=== PATIENT | female | born 1955 | race Caucasian/White ===

== ENCOUNTER 2024-10-06 16:23 | Inpatient (IN) ==
[2024-10-06] MEDS ORDERED: ONDANSETRON INJ 2 MG/ML 2 ML VIAL IV PRN (17:08)
[2024-10-06] MEDS ORDERED: ALUMINUM/MAGNESIUM SUSP 30 ML UDC PO PRN (17:08)
[2024-10-06] MEDS ORDERED: POLYETHYLENE (MIRALAX) 17 GM PACK PO PRN (17:08)
[2024-10-06 18:18] LABS: Basophils # (auto) 0.04 K/uL (0.00-0.20); Basophils % (auto) 0.5 %; Eosinophils % (auto) 1.1 %; Hematocrit (blood only) 40.6 % (37.0-47.0); Hemoglobin 13.8 g/dl (12.0-16.0); Immature Granulocytes # (auto) 0.04 K/uL (0.01-0.20); Immature Granulocytes % (auto) 0.5 %; Lymphocytes # (auto) 1.38 K/uL (1.20-3.40); Lymphocytes % (auto) 15.6 %; Mean Corpuscular Hemoglobin 28.9 pg (25.0-34.0); Mean Corpuscular Volume 85.1 fL (80.0-100.0); Mean Platelet Volume 9.6 fL (9.4-12.4); Monocytes # (auto) 0.47 K/uL (0.11-0.59); Monocytes % (auto) 5.3 %; Neutrophils # (auto) 6.81 K/uL (1.40-6.50); Platelet Count 380 K/uL (130-400); RDW Coefficient of Variation 12.7 % (11.5-14.5); Red Blood Count 4.77 M/uL (4.20-5.40); White Blood Count 8.84 K/ul (4.8-10.8)
[2024-10-06 18:32] LABS: BUN Creatinine Ratio 20.8 (10-20); C Reactive Protein 2.81 mg/dl (0-0.5); Calcium 9.8 mg/dl (8.6-10.3); Creatinine Clr Calc Pharmacy 59.2 ml/min; Potassium 4.3 mmol/L (3.5-5.1)
[2024-10-06] MEDS ORDERED: CARBOHYDRATES FOR HYPOGLYCEMIA PO PRN (18:36)
[2024-10-06] MEDS ORDERED: DEXTROSE 50% 50 ML SYRINGE IV PRN (18:36)
[2024-10-06] MEDS ORDERED: GLUCOSE 10 TAB/TUBE PO PRN (18:36)
[2024-10-06] MEDS ORDERED: GLUCAGON FOR INJ 1 MG VIAL SQ PRN (18:36)
[2024-10-06] MEDS ORDERED: GLUCOSE 40% GEL 15 GM TUBE PO PRN (18:36)
--- NOTE | 2024-10-06 19:18 | History & Physical Report ---
Date of Service October 06, 2024 Assessment & Plan (1) Gangrene of toe: (2) Diabetes: Plan 69 F with undiagnosed diabetes presented with gangrene to right 5th toe, likely associated diabetic foot infection and high blood glucoses not on treatment. Gangrene described as wet gangrene by Podiatric surgery, will have arterial dopplers, MRI of foot, blood cultures and crp, starting Zosyn iv Diabetes, new diagnosis, will give one dose of NPH and start loose ssi given is insulin niave, will try to get blood glucose down prior to surgery, will have Hgb A1c and have nutrition educator involved post op DVT prevention is SCD and post op will be chemoprophylaxis PT is a full code Admission and Anticipated Discharge Date Admission Date: October 06, 2024 History of Present Illness Primary Care Provider: NO PCP 69 F with relatively good health when approximately 6 weeks ago she did have blister on her right 5th toe she felt was secondary to abrasion, she did complete 10 days of Doxycycline starting 09/04/24, however after some minimal initial improvement her toe became worsened, eventually with what sounds like degloving of the toe, she then noticed that her toe was black and upon revealing this today, 10/06/24, she has a gangrenous toe and was refereed from podiatric clinic with wet gangrene and will likley need amputation, labs on admission show blood glucose of 345. will eval arterial supply, MRI to eval for osteomyelitis and npo for surgical correction Allergies Allergy/AdvReac Type Severity Reaction Status Date / Time No Known Drug Allergies Allergy Unknown Verified 10/06/24 17:18 Past Med/Surg History Problem List (Updated 10/06/24 @ 19:18 by Dmitriy Stewart MD) Diabetes Gangrene of toe Surgical History (Updated 10/06/24 @ 19:13 by Dmitriy Stewart MD) History of tonsillectomy Social History Smoking Status: Never smoker Hx Alcohol Use: Yes Hx Substance Use: No Preferred Language: Citizen Of [place] Marketing Operations Manager Required: No Beliefs That Will Affect Care: None Current Living Situation: Spouse Other Information That Helps Us Care for You: No Feels Safe at Home: Yes Safety Concerns: Feels Safe At This Time Assistive Devices: Denture - Upper and Glasses Review of Systems Review of Systems: Pt in minimal distress no headache, no visual changes no speech or swallowing issues no chest pain, pressure or palpitations no shortness of breath, cough or wheezes no abdominal pain, nausea or vomiting, diarrhea or constipation no dysuria, hematuria or frequency has gangrenous changes to right 5th toe no back pain, CVA tenderness or radicular pain no bruising, bleeding or rashes, pulses are poor in feet but cap refill is good no focal signs of weakness or numbness or altered sensation no complaints of anxiety or depression.. Physical Exam Physical Exam: The patient appeared well nourished and normally developed. Vital signs as documented. Head exam is normocephalic atraumatic Neck is without JVD, thyromegaly, or carotid bruits. Lungs are clear to auscultation, no focal loss of breath sounds Cardiac exam, Rhythm is regular.. No murmurs, rubs or gallops. Abdominal exam reveals normal bowel sounds, soft non tender, no masses Extremities are nonedematous and both pedal pulses are present but lessened r 5th toe is gangrenous tip to pip joint Neurologic exam is alert and oriented, no focal loss of strength or sensation gross sensation of feet intact Skin is otherwise without bruises or rashes Psychologically is without concerns for anxiety or depression.. Results & Data Results & Data Vital Signs (Past 12 Hours) Vital Signs Temp Pulse Resp BP Pulse Ox O2 Del Method 10/06/24 16:45 97.9 F 122 H 16 116/68 97 Room Air Laboratory Results reviewed admission cbc reviewed admission chemistry, glucose is 345 Diagnostic Findings ecg sinus tachy Code Status & VTE Plan VTE Prophylaxis Plan VTE Prophylaxis will be ordered: Yes PG Care Time/CCT Total # of Minutes Spent Total Time Spent with Patient: Total time spent is greater than 50% in coordination of care (as documented) at patient's floor/unit and/or counseling patient: Coding Level of Care Code 54276 INT INP/OBS CARE 3/75MIN Diagnoses Gangrene of toe I96 Diabetes E11.9
[2024-10-06] MEDS: 4.5GM X1 IV STA (20:27)
[2024-10-06] MEDS: NovoLIN-N (NPH) PER UNIT CHARGE SQ ONE (20:30)
[2024-10-06] MEDS: INSULIN ASPART PER UNIT CHARGE SC SCH (21:02)
--- NOTE | 2024-10-06 22:09 | Ultrasound Report ---
EXAM: US arterial duplex LE BI CLINICAL HISTORY: eval blood flow feet recent gangrene. TECHNIQUE: Ultrasound examination of the bilateral lower extremities arteries with ankle brachial indices was performed in real time and duplex. One or more of the following were performed- spectral analysis, resistive index, waveform analysis, and pulsed Doppler. COMPARISON: None. FINDINGS: Vessel Flow Pattern Right Peak Velocity Right (cm/sec) Flow Pattern Left Peak Velocity Left (cm/sec) Common Femoral Artery (FILLING MACHINE OPERATOR) Triphasic 88/11 Triphasic 96/19 Deep Femoral Artery (DPA) triphasic 137/13 Biphasic 64.1 Superficial Femoral Artery (SFA) Biphasic=proximal,mid Monophasic=distal 111-Proximal 232/48-mid 30/17-Distal Biphasic-proximal, mid Monophasic-distal 90/13-proximal 87/11-mid 33/10 Popliteal Artery (POP A) Monophasic-proximal,distal Biphasic-mid 74/45-proximal 186-mid 52/26-Distal Monophasic 77/24-proximal 30/10-mid 39/12-distal Posterior Tibial Artery (EQUIPMENT TESTER), proximal Monophasic 37/24 Monophasic 18/7 Posterior Tibial Artery (EQUIPMENT TESTER), mid Monophasic 26/16 Monophasic 23/9 Posterior Tibial Artery (EQUIPMENT TESTER), distal Monophasic 29/16 Monophasic 13/2 Peroneal artery Monophasic 8/8.3-Proximal 11/6-Mid 8/3-Distal Monophasic 24/10-proximal 10/3-mid 9/0.4-Distal Anterior tibial artery(RAKESH) Monophasic 24/12-Proximal 21/9-Mid 8-Distal Monophasic 45/16-proximal 24/10-mid Dorsalis Pedis Artery (DPA) Monophasic 7.4 Monophasic 16/5 Ankle-brachial indices are 0.39 on the right and 0.71 on the left. Hypoechoic soft tissue is noted in the mid and distal portions of the femoral and popliteal arteries bilaterally with patchy central blood flow seen. High-velocity flow is noted in the right proximal superficial femoral artery with a distal partially thrombosed vessel. Parvus tardus waveform is noted in the calf vessels bilaterally with a monophasic flow pattern. IMPRESSION: 1. Hypoechoic soft tissue was noted in the mid and distal portions of both superficial femoral arteries and the popliteal artery with central patchy blood flow. These findings are concerning for partial thrombosis or moderate atherosclerotic changes. CTA might prove further helpful in evaluation. 2. High-velocity flow in the right proximal superficial femoral artery with partially thrombosed distal vessel. 3. Monophasic parvus tardus waveforms in the distal calf vessels seen bilaterally. 4. Deranged ankle-brachial indices are suggestive of mild to moderate peripheral arterial disease. Electronically signed by Joseph Middleton 10-06-2024 10:08 PM
--- NOTE | 2024-10-06 23:05 | XRay Report ---
Exam(s): XR CXR 1 VIEW EXAM: XR Chest, 1 View CLINICAL HISTORY: Reason for exam: pre op. TECHNIQUE: Frontal view of the chest. COMPARISON: No relevant prior studies available. FINDINGS: Lungs: Unremarkable. No acute infiltration, atelectasis or mass. Pleural space: Unremarkable. No pneumothorax or pleural fluid. Heart: Unremarkable. No cardiomegaly. Mediastinum: Unremarkable. Normal mediastinal contour. Bones/joints: No acute findings. IMPRESSION: No acute findings in the chest. Electronically signed by: Declan Goldberg MD 10/06/24 23:04 PM
--- NOTE | 2024-10-06 23:09 | Magnetic Resonance Report ---
Exam(s): MRI RIGHT FOOT Without Contrast EXAM: MR Right Lower Extremity Without Intravenous Contrast, Foot CLINICAL HISTORY: Reason for exam: right 5th toe gangrene eval further osteo. TECHNIQUE: Multiplanar magnetic resonance images of the right foot without intravenous contrast. COMPARISON: No relevant prior studies available. FINDINGS: There is extensive abnormal bone marrow edema can fluently within the phalanges of the fifth toe consistent with osteomyelitis. No signal abnormalities is seen within the fifth metatarsal. No other significant component of bone marrow edema is evident in the forefoot or midfoot. There is extensive diffuse edema in the forefoot. This is prominent in the fifth digit. There also appears to be extensive loss of the skin and subcutaneous tissues along the dorsal lateral aspect of the fifth toe. IMPRESSION: Evidence of active osteomyelitis in the phalanges of the fifth toe. Electronically signed by: Declan Goldberg MD 10/06/24 23:08 PM
[2024-10-06] MEDS ORDERED: Nursing to Pharmacy Communication SCH (23:45)
[2024-10-07] MEDS: INSULIN ASPART PER UNIT CHARGE SC SCH ×2 (00:31→20:49)
[2024-10-07] MEDS: PIPERACILLIN/TAZOBACTAM 4.5 GM/100 ML BAG IV SCH (02:04)
[2024-10-07] MEDS: ACETAMINOPHEN 325 MG TAB PO PRN (05:50)
[2024-10-07 06:19] LABS: Hemoglobin 12.6 g/dl (12.0-16.0); Mean Corpuscular Hemoglobin 29.1 pg (25.0-34.0); Mean Corpuscular Hgb Conc 34.1 g/dL (32.0-36.0); Mean Corpuscular Volume 85.5 fL (80.0-100.0); Mean Platelet Volume 9.8 fL (9.4-12.4); Platelet Count 353 K/uL (130-400); RDW Coefficient of Variation 12.9 % (11.5-14.5); RDW Standard Deviation 39.8 fL (36.4-46.3); Red Blood Count 4.33 M/uL (4.20-5.40); White Blood Count 8.69 K/ul (4.8-10.8)
[2024-10-07 06:35] LABS: BUN Creatinine Ratio 19.4 (10-20); Calcium 9.3 mg/dl (8.6-10.3); Creatinine Clr Calc Pharmacy 55.1 ml/min; Potassium 3.9 mmol/L (3.5-5.1)
--- NOTE | 2024-10-07 06:53 | Podiatry Consultation ---
Date of Consultation October 07, 2024 Assessment & Plan (1) Peripheral arterial disease: (2) Osteomyelitis of fifth toe of right foot: (3) Gangrene of toe of right foot: (4) Diabetes: Diabetes mellitus type: type 2 Diabetes mellitus termite renewal inspector in sulin use: without prison use Diabetes mellitus complication status: with hyperglycemia Qualified Code(s): E11.65 - Type 2 diabetes mellitus with hyperglycemia Plan Tentative plan for right fifth digit amputation 10/07/2024 add-on case sometime after 4 PM. Continue n.p.o. order. Plan for MAC anesthesia with local block(patient has peripheral neuropathy and little pain at baseline with gangrenous fifth toe). If necessary, okay from podiatry standpoint to continue anticoagulation through the operative phase if no objection from an anesthesia standpoint. Case discussed at length with patient and all questions answered. Will review and sign consent with patient in preoperative holding area. Peripheral vascular disease noted on arterial Doppler study right greater than left. CT angiogram aorta with runoff pending. Will await vascular recommendations prior to amputation. MRI positive for osteomyelitis of the fifth digit right foot. No apparent bone marrow edema of the fourth toe or fifth metatarsal. Discussed with Dr. Stewart. History of Present Illness Reason for Consultation: Gangrene right fifth toe Attending Physician: Dmitriy Stewart MD History of Present Illness Gangrenous fifth toe right foot. Patient reports blood blister to the fifth toe if she noticed 5 to 6 weeks ago. She had been soaking in warm water with Epsom salts and dressing and dry dressing. This past Saturday the top layer of skin came off and she noticed the toe was gangrenous. At that time, she released pus from in between the fourth and fifth toes and started noticing significant odor. Has been developing increasing redness and swelling to the right foot since this past Saturday. Denies nausea, vomiting, fever, chills. Denies history of foot ulceration. Denies history of diabetes or neuropathy. Reports her primary care doctor retired approximately 2 years ago and she has not had blood work to evaluate for diabetes since that time. Unaware of any history of vascular workup the lower extremities. Seen this morning resting comfortably in bedside chair with foot elevated on a chair. Dressing is clean and intact. Patient reports mild increase in pain to the right foot over the past 24 hours. Denies nausea vomiting fever chills. We discussed results of MRI and noninvasive vascular studies. Tentative plan to move forward with fifth digit amputation of the right foot this evening pending vascular clearance. On further discussion patient does report some history of exercise intolerance with calf pain with walking. She reports pain resolved with physical therapy and she denies issues with calf pain since that time. Reports mild pain in the right foot this morning which is increased since yesterday's office visit. Reports improvement of right foot pain with feet in dependent position. Patient's son is a physical therapist in [facility]. Her and son's family are currently out of town traveling home from [place] where he was physical therapy conference/training. Likely returning to the area sometime later today. Patient is waiting till family is closer to town to alert them of her situation. Allergies Allergy/AdvReac Type Severity Reaction Status Date / Time No Known Drug Allergies Allergy Unknown Verified 10/06/24 17:18 Patient History Surgical History (Updated 10/06/24 @ 19:13 by Dmitriy Stewart MD) History of tonsillectomy Social History Smoking Status: Never smoker Hx Alcohol Use: Yes Hx Substance Use: No Preferred Language: [place] Aircraft Cleaning Supervisor Required: No Beliefs That Will Affect Care: None Current Living Situation: Spouse Feels Safe at Home: Yes Assistive Devices: Denture - Upper and Glasses Review of Systems Review of Systems: Denies nausea, vomiting, fever, chills. Cellulitis right foot. Gangrene right fifth toe. Systems are reviewed and otherwise unremarkable unless detailed in history of present illness. Physical Exam Physical Exam: Const: Appears well developed and well nourished. No signs of acute distress present. CV: Extremities: No cyanosis or edema. Capillary refill time is less than 2 seconds all digits of the bilateral foot. Posterior tibial and dorsalis pedis pulses are lightly palpable left nonpalpable right possibly secondary to edema. Skin: Thinning atrophic skin to the bilateral lower extremity with loss of hair growth. Neuro: Decreased protective sensation in the bilateral toes. Psych: Mood/Affect: Mood is normal. Affect is normal. Cognition: Orientation is intact to person, place and time. Focused lower extremity musculoskeletal exam: Leg: No pain with compression of the calf muscle. Ankles: Normal to inspection and palpation. No signs of external injury. Edema right ankle. Right foot: Decreased erythema and edema to the right foot over the past 24 hours. Wet gangrenous portion of the medial toe has significantly improved over the past 24 hours with Betadine soaked dressing transitioning to more of a dry gangrene with persistent scant purulent drainage. Band of erythema extending along the lateral foot from the right fifth toe to the hindfoot and ankle. Lymphangitis does not extend proximal to the ankle. Mummification of the right fifth toe with wet gangrene of the right fifth toe medially with malodor and purulent drainage on the toes. Exposed bone of the distal phalanx of the fifth toe. Fifth toe encroaching on the neighboring fourth toe with exposed joint capsule of the proximal interphalangeal joint necrotic tissue to the wound bed. Results & Data Vital Signs (Past 12 Hours) Vital Signs Temp Pulse Resp BP Pulse Ox O2 Del Method 10/06/24 20:15 36.7 C 82 16 120/62 96 Room Air Diagnostic Findings MRI right foot 10/06/2024: FINDINGS: There is extensive abnormal bone marrow edema can fluently within the phalanges of the fifth toe consistent with osteomyelitis. No signal abnormalities is seen within the fifth metatarsal. No other significant component of bone marrow edema is evident in the forefoot or midfoot. There is extensive diffuse edema in the forefoot. This is prominent in the fifth digit. There also appears to be extensive loss of the skin and subcutaneous tissues along the dorsal lateral aspect of the fifth toe. IMPRESSION: Evidence of active osteomyelitis in the phalanges of the fifth toe. Electronically signed by: Declan Goldberg MD 10/06/24 23:08 PM Lower extremity duplex arterial ultrasound 10/06/2024: Ankle-brachial indices are 0.39 on the right and 0.71 on the left. Hypoechoic soft tissue is noted in the mid and distal portions of the femoral and popliteal arteries bilaterally with patchy central blood flow seen. High-velocity flow is noted in the right proximal superficial femoral artery with a distal partially thrombosed vessel. Parvus tardus waveform is noted in the calf vessels bilaterally with a monophasic flow pattern. IMPRESSION: 1. Hypoechoic soft tissue was noted in the mid and distal portions of both superficial femoral arteries and the popliteal artery with central patchy blood flow. These findings are concerning for partial thrombosis or moderate atherosclerotic changes. CTA might prove further helpful in evaluation. 2. High-velocity flow in the right proximal superficial femoral artery with partially thrombosed distal vessel. 3. Monophasic parvus tardus waveforms in the distal calf vessels seen bilaterally. 4. Deranged ankle-brachial indices are suggestive of mild to moderate peripheral arterial disease. Electronically signed by Joseph Middleton 10-06-2024 10:08 PM PG Care Time/CCT Total # of Minutes Spent Total Time Spent with Patient: Total time spent is greater than 50% in coordination of care (as documented) at patient's floor/unit and/or counseling patient: Coding Level of Care Code 45560 INT INP/OBS CARE 2/55MIN Diagnoses Peripheral arterial disease I73.9 Osteomyelitis of fifth toe of right foot M86.9 Gangrene of toe of right foot I96 Type 2 diabetes mellitus with hyperglycemia, without long-term current use of insulin E11.65 Diabetes mellitus type: type 2 Diabetes mellitus termite renewal inspector insulin use: without prison use Diabetes mellitus complication status: with hyperglycemia
[2024-10-07] MEDS: OPTIRAY 320 125ml IV ONE (08:19)
[2024-10-07] MEDS: LANTUS PER UNIT CHARGE SQ ONE (08:29)
--- NOTE | 2024-10-07 09:19 | CT Scan Report ---
CT ANGIOGRAPHY OF THE ABDOMEN AND PELVIS WITH BILATERAL LOWER EXTREMITY RUNOFF CLINICAL HISTORY: New found bilateral femoral arterial thrombus. COMPARISON STUDY: Bilateral lower extremity arterial Doppler ultrasound October 06, 2024. TECHNIQUE: Helical axial images of the abdomen and pelvis and both lower extremities were obtained du ring arterial phase following intravenous injection of 120 cc Optiray 320 IV. Sagittal and coronal re formats were viewed as well as maximal intensity projections on an independent 3-D workstation. Autom ated exposure control was utilized for the study. A dose lowering technique was utilized adhering to the principles of ALARA. FINDINGS: Visualized portions of the lung bases are unremarkable. The heart is mildly enlarged. There are no hepatic lesions. There is no biliary or pancreatic ductal dilatation. A 2.1 cm densely calcif ied focus within the right upper quadrant, adjacent to the hepatic flexure of the colon is benign. Sp adia, adrenal glands, kidneys and pancreas are unremarkable. There is no hydronephrosis. The caliber and wall thickness of small and large bowel are normal. The appendix is normal. There is no lymphaden opathy. No fluid collections are present. There are no fractures or suspicious osseous lesions within visualized skeletal structures. Note is made of soft tissue gas within the right fifth toe that exte nds to the underlying bone. The caliber of the abdominal aorta is normal. There is moderate atherosclerotic plaque of the abdomin al aorta. The celiac axis, inferior mesenteric artery and bilateral renal arteries are patent without stenosis. There is severe luminal narrowing (90%) of the superior mesenteric artery without occlusio n. There is circumferential noncalcified plaque versus wall thickening of the superior mesenteric art jodie that results in narrowing. There is mild plaque within the right common iliac artery without stenosis. There is moderate stenosi s at the origin of the right internal iliac artery. The right external iliac artery is patent. There is severe short segment narrowing of the proximal right profunda. Severe stenosis of the proximal rig ht superficial femoral artery is noted with occlusion of the majority of the right superficial femora l artery with reconstitution at the level of the distal SFA through collaterals. There is severe sten osis of the right popliteal artery and occlusion versus severe stenosis at the right trifurcation. Th e right calf vessels are severely narrowed versus occluded proximally with distal reconstitution. The mid to distal right calf vessels are somewhat diminutive but patent. There is mild plaque within the left common iliac artery without stenosis. There is mild stenosis at the origin of the left internal iliac artery. The left external iliac artery is patent. Severe short segment stenosis of the proximal left profunda is noted. There is moderate stenosis within the proxim al to mid left superficial femoral artery with severe narrowing of the distal left superficial femora l artery. Associated collaterals are present. There is severe stenosis of the left popliteal artery w ith occlusion at the trifurcation. The proximal left calf vessels are occluded with reconstitution. T he mid to distal left calf vessels are diminutive but patent. IMPRESSION: 1. Extensive vascular disease within the bilateral lower extremities, right more severe than left. T he findings are likely due to to noncalcified atherosclerotic plaque. Intraluminal thrombus could kim ear similar although is considered less likely. No emboli identified. Although less likely, an underl meseret vasculitis would be difficult to completely exclude, particularly given findings within the supe rior mesenteric artery. 2. Occlusion of the majority of the right superficial femoral artery with distal reconstitution throu gh collaterals. Severe stenosis of the right popliteal artery and occlusion versus severe stenosis of the right trifurcation and proximal right calf vessels. Mid to distal right calf vessels patent but somewhat diminutive. 3. Severe stenosis of the distal left superficial femoral artery with associated collateral formation . Severe stenosis of the left popliteal artery with occlusion at the left trifurcation with reconstit ution through collaterals. The mid to distal left calf vessels patent but somewhat diminutive. 4. Severe luminal narrowing of the superior mesenteric artery due to circumferential noncalcified sebas que versus wall thickening. The findings are likely due to noncalcified plaque however a superimposed vasculitis cannot be excluded. 5. Soft tissue gas within the right fifth toe which extends to the underlying bone. Although no bony erosion by CT, the findings are suspicious for osteomyelitis of the right fifth toe. ACT 112: Negative or not required by law. Electronically signed by: Raffi Mcmillan M.D. 10/07/2024 9:17 AM
[2024-10-07 10:30] LABS: ANTI-Xa, UFH(UnfractionatedHep < 0.10 IU/ml (0.3-0.7)
[2024-10-07] MEDS ORDERED: fentaNYL citrate PF 100 MCG/2 ML VIAL IV ONE (11:16)
[2024-10-07 11:18] LABS: Chol HDL Ratio 5.9 (0-5)
[2024-10-07 11:28] LABS: Estimated Average Glucose 329 mg/dl; Hemoglobin A1C 13.1 % (4.5-5.6)
--- NOTE | 2024-10-07 11:31 | Electrocardiogram Report ---
Test Reason : Blood Pressure : */* mmHG Vent. Rate : 106 BPM Atrial Rate : 106 BPM P-R Int : 164 ms QRS Dur : 80 ms QT Int : 346 ms P-R-T Axes : 60 -23 64 degrees QTcB Int : 459 ms Sinus tachycardia Voltage criteria for left ventricular hypertrophy Abnormal ECG No previous ECGs available Confirmed by Jordi Stokes ([id number]) on 10/07/2024 11:31:30 AM Referred By: Dmitriy Stewart Confirmed By: Jordi Stokes
[2024-10-07] MEDS: INSULIN HUMAN REGULAR PER UNIT 10 UNITS in SYRINGE 9.9 ML IV ONE (12:45)
[2024-10-07] MEDS: INSULIN HUMAN NPH SC ONE (12:47)
--- NOTE | 2024-10-07 13:45 | Consultation ---
Date of Consultation October 07, 2024 Assessment & Plan (1) Peripheral arterial disease: This patient has gangrene of the right fifth toe. She is scheduled for amputation today of the right fifth toe. I would recommend arteriography and possible invention this Saturday. If intervention is not possible via the e ndovascular technique we will check the amputation site next week. If it shows no signs of healing then we will plan on doing a bypass. If it shows any signs of healing I would like to treat this conservatively to see if we get it healed without any major vascular reconstructions. I will continue to heparin at this time. Thank you very much for letting us participate in the care of this patient. History of Present Illness Reason for Consultation: Peripheral vascular disease with gangrene of the right fifth toe Attending Physician: Dmitriy Stewart MD History of Present Illness This is a 69-year-old female who was recently found to be diabetic. She claims that she developed a blood blister on her lateral aspect of her right fifth toe approximately 2 weeks prior to this. She thought it was secondary to her new pair of sneakers which she was using for exercise. The skin finally fell off the blister and she noticed that beneath that it was black tissue. She denies any previous history of claudication or tissue loss of the lower extremities. She did have arterial noninvasives and a CAT scan which showed a right superficial femoral artery and possibly popliteal artery occlusion. The left lower extremity also has superficial femoral artery occlusion. Indices are 0.7 on the left and 0.4 on the right. Allergies Allergy/AdvReac Type Severity Reaction Status Date / Time No Known Drug Allergies Allergy Unknown Verified 10/06/24 17:18 Patient History Surgical History History of tonsillectomy Social History Smoking Status: Never smoker Hx Alcohol Use: Yes Hx Substance Use: No Preferred Language: Chinese Film Painter Required: No Beliefs That Will Affect Care: None Current Living Situation: Spouse Feels Safe at Home: Yes Assistive Devices: Denture - Upper and Glasses Review of Systems Review of Systems: All systems reviewed & are unremarkable except as noted in HPI & below Physical Exam Constitutional: WD/WN, vitals as above Respiratory: normal respiratory effort; no respiratory distress Cardiovascular: Rate/Rhythm: regular rate and regular rhythm Vessels: + femoral bruit; + posterior tibial pulses abnormal and + dorsalis pedis pulses ab normal Extremities: + abnormal capillary refill Skin: + eschar (gangrene right 5th toe) Neurologic: CN's II-XI intact bilaterally and moves all extremities Psychiatric: A+Ox3, euthymic affect Results & Data Vital Signs (Past 12 Hours) Vital Signs Temp Pulse Resp BP Pulse Ox O2 Del Method 10/07/24 07:35 36.6 C 108 H 16 122/74 96 Room Air
[2024-10-07 14:03] LABS: A calco-baum cmplx NotReported Not Detected (NotDetected); Bact fragilis Not Reported Not Detected (NotDetected); Blood Culture Id Panel See PCR Comment (NotDetected); C auris Not Reported Not Detected (NotDetected); Calbicans Not Reported Not Detected (NotDetected); Candida glabrata Not Reported Not Detected (NotDetected); Candida krusei Not Reported Not Detected (NotDetected); Cneoformans/gatti Not Reported Not Detected (NotDetected); Cparapsilosis Not Reported Not Detected (NotDetected); E cloacae compx Not Reported Not Detected (NotDetected); Efaecalis Not Reported Not Detected (NotDetected); Efaecium Not Reported Not Detected (NotDetected); Enterobacterales Not Reported Not Detected (NotDetected); Escherichia coli Not Reported Not Detected (NotDetected); H influenzae Not Reported Not Detected (NotDetected); K aerogenes Not Reported Not Detected (NotDetected); Koxytoca Not Reported Not Detected (NotDetected); Kpneumoniae grp Not Reported Not Detected (NotDetected); Lmonocyt Not Reported Not Detected (NotDetected); N meningitidis Not Reported Not Detected (NotDetected); P aeruginosa Not Reported Not Detected (NotDetected); Proteus spp Not Reported Not Detected (NotDetected); Salmonella spp Not Reported Not Detected (NotDetected); Staph lugdunensis Not Reported Not Detected (NotDetected); Staph spp. Not Reported Not Detected (NotDetected); Staphaureus Not Reported Not Detected (NotDetected); Staphepi Not Reported Not Detected (NotDetected); Stenmaltophilia Not Reported Not Detected (NotDetected); Strep agal(GrpB) Not Reported Not Detected (NotDetected); Strep pneum Not Reported Not Detected (NotDetected); Strep pyog (GrpA) Not Reported Not Detected (NotDetected); Strep spp Not Reported DETECTED (NotDetected)
[2024-10-07 14:14] LABS: Streptococcus spp DETECTED (NotDetected)
[2024-10-07] MEDS ORDERED: fentaNYL citrate PF 100 MCG/2 ML VIAL ONE (14:21)
[2024-10-07] MEDS ORDERED: PROPOFOL IV EMULSION 10 MG/ML 20 ML VIAL IV ONE ×5 (14:21→16:50)
[2024-10-07] MEDS ORDERED: LIDOCAINE 2% 2 ML VIAL/AMP(20MG/ML) INFIL ONE (14:21)
[2024-10-07] MEDS ORDERED: ONDANSETRON INJ 2 MG/ML 2 ML VIAL ONE (14:21)
[2024-10-07] MEDS ORDERED: MIDAZOLAM HCL 1 MG/ML 2ML VIAL ONE (14:21)
[2024-10-07] MEDS ORDERED: DEXAMETHASONE SOD INJ 4 MG/ML VIAL ONE (14:21)
[2024-10-07] MEDS ORDERED: ATROPINE SULFATE 0.1 MG/ML 10ML SYR IV PRN (15:34)
[2024-10-07] MEDS ORDERED: ePHEDrine sulfate 50 MG/ML AMP IV PRN (15:34)
[2024-10-07] MEDS ORDERED: fentaNYL citrate PF 100 MCG/2 ML VIAL IV PRN (15:34)
[2024-10-07] MEDS ORDERED: ONDANSETRON INJ 2 MG/ML 2 ML VIAL IV PRN (15:34)
--- NOTE | 2024-10-07 15:34 | Anesthesiology Consultation ---
Date of Service October 07, 2024 Assessment & Plan Chart Review Chart Review: Acceptable Risk for Surgery and Patient NOT seen in Pre Admission Testing Consults Requested none History Surgery Operation Date: 10/07/24 07:00 Proposed Procedures p Right 5th Toe Amputation - Bebeto Wild DPM Operation Date: 10/09/24 10:15 Proposed Procedures p Right Leg Angiogram, Possible Intervention - Frank Lewis MD Height/Weight Height: 5 ft 2 in Weight: 89.6 kg Allergies Allergy/AdvReac Type Severity Reaction Status Date / Time No Known Drug Allergies Allergy Unknown Verified 10/06/24 17:18 Medications Active Medications Generic Name Dose Route Start Last Admin Trade Name Freq PRN Reason Stop Dose Admin Acetaminophen 650 mg 10/06/24 17:08 10/07/24 05:50 Acetaminophen 325 Mg Tab PO 11/05/24 17:07 650 mg Q4H PRN Administration pain/fever Piperacillin Sod/Tazobactam Sod 4.5 gm in 100 mls @ 25 mls/hr 10/07/24 02:00 10/07/24 13:48 Zosyn IV 10/14/24 01:59 Infused Q8H JOSIE Infusion Protocol Insulin Aspart 0 units 10/07/24 00:00 10/07/24 12:44 Insulin Aspart Per Unit Charge SC 11/06/24 00:00 8 units Q6 JOSIE Administration Past Surgical History Surgical History History of tonsillectomy Social History Smoking Status: Never smoker Hx Alcohol Use: Yes alcohol intake frequency: holidays/special occasions only Hx Substance Use: No Physical Exam Vital Signs Last Vital Signs Temp 36.6 C 10/07/24 07:35 Pulse 108 H 10/07/24 07:35 Resp 16 10/07/24 07:35 BP 122/74 10/07/24 07:35 Pulse Ox 96 10/07/24 07:35 O2 Del Method Room Air 10/07/24 07:35 Testing Laboratory Results 10/07/24 05:48 10/07/24 11:45 Hemoglobin A1c 13.1 % (4.5-5.6) H 10/06/24 17:53 10/06/24 17:54 Anaerobic Blood Culture - Preliminary Blood Gram positive cocci in chains 10/06/24 17:53 Anaerobic Blood Culture - Preliminary Blood Gram positive cocci in chains 10/07/24 10/07/24 10/07/24 15:03 13:29 11:25 POC Glucose 219 H 271 H 309 H* 10/07/24 10/07/24 10/07/24 11:24 11:23 07:39 POC Glucose 343 H* 360 H* 286 H 10/07/24 05:40 POC Glucose 255 H Electrocardiogram Date: 10/06/24 Sinus tachycardia Voltage criteria for left ventricular hypertrophy Abnormal ECG No previous ECGs available Confirmed by Jordi Stokes ([id number]) on 10/07/2024 11:31:30 AM
[2024-10-07] MEDS ORDERED: PROMETHAZINE HCL 6.25 MG in SODIUM CHLORIDE 0.9% 50 ML IV PRN (16:04)
--- NOTE | 2024-10-07 16:18 | History & Physical Bridge Note ---
Date of Service October 07, 2024 History & Physical Bridge Note I have examined the patient, reviewed the History & Physical and in the interval since the performance of the History & Physical I have noted the following changes of clinical significance: no changes noted. Vascular surgery consult reviewed and noted. Discussed case with hospitalist team. Reviewed written informed consent with risks and benefits of suggested procedure discussed at length with patient. All questions answered. Informed consent signed by patient and witnessed. Right fifth toe marked
--- NOTE | 2024-10-07 16:33 | Hospitalist Progress Note ---
Date of Service October 07, 2024 Assessment & Plan (1) Gangrene of toe: (2) Diabetes: (3) Gram-positive bacteremia: Plan 69 F with undiagnosed diabetes presented with gangrene to right 5th toe, likely associated diabetic foot infection and high blood glucoses not on treatment. Partial arterial occlusion to lower extremities R>L and gram positive bacteremia with preliminary strep diagnosed Gangrene described as wet gangrene by Podiatric surgery, abnormal arterial Doppler, initiated hypercoagulable workup, CTA of abd aorta and run off shows marked PAD with right leg worse than left leg but also comments on some sma stenosis, strep bacteremia on 2 blood cultures with additional sets ordered for 10/08 and pending echo order also, MRI of foot seems show osteo limited to Right fifth foot phalanges, continuing Zosyn iv Diabetes, new diagnosis, Aic 13 basal bolus insulin PAD vascular surgery considering intervention on 10/09/24 DVT prevention is SCD and post op will be started on heparin gtt without bolus PT is a full code Admission and Anticipated Discharge Date Admission Date: October 06, 2024 Subjective pt had some increased pain after BEBA on Lower extremities, has some improved swelling and redness to foot with iv antibiotics for OR 10/07/24 Physical Exam Physical Exam: awake and alert foot with gangrene foul odor erythema is receding, still some edema, poor but weakly palpable pulses Results & Data Results & Data Vital Signs (Past 12 Hours) Vital Signs Temp Pulse Resp BP Pulse Ox O2 Del Method 10/07/24 15:40 98.2 F 107 H 20 124/69 98 Room Air 10/07/24 07:35 97.9 F 108 H 16 122/74 96 Room Air Laboratory Results reviewed cbc reviewed chemistry review lipids PG Care Time/CCT Total # of Minutes Spent Total Time Spent with Patient: Total time spent is greater than 50% in coordination of care (as documented) at patient's floor/unit and/or counseling patient: Coding Level of Care Code 20607 SUB INP/OBS CARE 3/50MIN Diagnoses Gangrene of toe I96 Type 2 diabetes mellitus with hyperglycemia, without long-term current use of insulin E11.65 Diabetes mellitus type: type 2 Diabetes mellitus fpc insulin use: without fpc use Diabetes mellitus complication status: with hyperglycemia Gram-positive bacteremia R78.81 (2) Diabetes Diabetes mellitus type: type 2 Diabetes mellitus fpc insulin use: without fpc use Diabetes mellitus complication status: with hyperglycemia Qualified Code(s): E11.65 - Type 2 diabetes mellitus with hyperglycemia
[2024-10-07] MEDS: BUPIVACAINE 0.5 % 5 MG/1 ML MPF 30ML VIAL ONE (16:47)
--- NOTE | 2024-10-07 17:00 | Post Operative Brief Note ---
PG Immediate Post Op with CF Date of Surgery October 07, 2024 Pre & Post Diagnosis Operation Date: 10/09/24 10:15 <No data on this case meets the specified criteria> I identified the patient and participated in the time-out.: Yes Procedure Operation Date: 10/09/24 10:15 <No data on this case meets the specified criteria> Surgeon Bebeto Wild, RAEGANM Ultrasonic Solderer none Estimated Blood Loss 2 Findings Consistent with Post-Op Diagnosis Specimens Specimen Description: A. Right 5th toe B. Right 5th toe proximal margin Culture 1. Right 5th toe bone for culture
--- NOTE | 2024-10-07 17:10 | Anesthesiology Progress Note ---
Date of Service October 07, 2024 Anesthesia Post Procedure Vital Signs Vital Signs: Temp Pulse Resp BP Pulse Ox O2 Del Method 10/07/24 15:40 36.8 C 107 H 20 124/69 98 Room Air 10/07/24 07:35 36.6 C 108 H 16 122/74 96 Room Air 10/06/24 20:15 36.7 C 82 16 120/62 96 Room Air Transfer of Care Handoff Completed per policy Notes Mental Status: alert / awake / arousable and participated in evaluation Patient Amnestic to Procedure: Yes Nausea / Vomiting: adequately controlled Pain: adequately controlled Airway Patency, RR, SpO2: stable & adequate BP & HR: stable & adequate Hydration State: stable & adequate Anesthetic Complications: no major complications apparent and Pt Satisfied with anesthetic care
--- NOTE | 2024-10-07 17:14 | Operative Report ---
PG Post Operative Report Pre & Post Diagnosis Operation Date: 10/09/24 10:15 <No data on this case meets the specified criteria> I identified the patient and participated in the time-out.: Yes Procedure Operation Date: 10/09/24 10:15 <No data on this case meets the specified criteria> Surgeon Bebeto Wild, JOSE Conflict Resolution Professional none Estimated Blood Loss 2 Findings Consistent with Post-Op Diagnosis Specimens 1 right fifth toe proximal margin to pathology 2 right fifth toe bone for culture 3 right fifth toe for pathology Drains None Description of Procedure Patient is brought to the patient was brought to the room and remains on hospital bed in supine position. Following IV anesthesia local anesthesia. Right lower extremity is scrubbed prepped and draped to the level of the ankle in usual aseptic fashion. Timeout is held confirming correct patient, side, site, procedure with all necessary parties confirming. Local anesthesia is obtained obtained about the patient's right fifth ray utilizing a total of 10 cc of half percent Marcaine and 1% lidocaine plain. Attention was directed to the right fifth toe which was noted to be gangrenous with ongoing mild malodor. Gangrenous soft tissue extends to approximately the level of the proximal interphalangeal joint of the fifth toe circumferentially. Toe was grasped with a penetrating towel clamp and scant purulent drainage is expressed from the digit. Skin marker was utilized to plan a teardrop shaped incision about the fifth digit with the apex extending slightly dorsal laterally along the glabrous junction. Incision is created with a 15 blade and carried deep to the level of bone of the proximal phalanx of the fifth toe circumferentially. Using sharp and blunt dissection soft tissue was freed from the proximal phalanx to the level of the metatarsophalangeal joint. Wound is flushed with normal sterile saline. Clean 15 blade is utilized to incise the joint capsule at the metatarsal phalangeal joint and disarticulate the toe. Digit is passed to the back table and proximal margin bone pathology is collected with bone cutter including the proximal articular surface of the proximal phalanx. Second bone sample was collected from the proximal phalanx sent for culture and sensitivity. The remainder of the digit is placed in a blue top vessel to be sent for gross pathologic analysis. Wound bed is evaluated and noted to be free of any necrotic appearing soft tissue or bone. Fifth metatarsal head is pristine appearing white cartilage with no signs of necrosis discoloration or damage. Overall minimal bleeding is noted within the surgical wound however there are several small oozing vessels throughout the wound bed within the subcutaneous and cutaneous tissues. No large lumens are identified and electrocautery is not required for hemostasis. Wound is flushed with 500 cc of normal sterile saline. Wound edges are reapproximated over the fifth metatarsal head with little to no tension on the skin edges with a 4-0 nylon suture in simple interrupted fashion taking care not to strangulate the tissue. Foot is cleansed with normal sterile saline dried and dressed with Betadine soaked Adaptic, 4 x 4 fluff gauze, ABD pad and lightly applied Iris dressing and tape. Patient tolerated the procedure and anesthesia well. She was transferred to the PACU with vital signs stable. Following a brief period of. Rate of monitoring in the recovery room. Patient will be transferred back to her hospital bed on the floor for continued medical management, IV antibiotics and plan for angiogram with possible intervention 10/09/2024. Based on intraoperative findings I believe patient would benefit from increased perfusion to the right lower extremity to improve healing potential. Will monitor wound closely until resolution. I attest to the content of the Intraoperative Record and any orders documented therein. Any exceptions are noted below.
[2024-10-07] MEDS ORDERED: Nursing to Pharmacy Communication SCH (18:30)
[2024-10-07] MEDS: LANTUS PER UNIT CHARGE SQ SCH (20:48)
[2024-10-08 08:14] LABS: Hematocrit (blood only) 37.8 % (37.0-47.0); Hemoglobin 12.3 g/dl (12.0-16.0); Mean Corpuscular Hemoglobin 28.5 pg (25.0-34.0); Mean Corpuscular Hgb Conc 32.5 g/dL (32.0-36.0); Mean Corpuscular Volume 87.7 fL (80.0-100.0); Mean Platelet Volume 9.7 fL (9.4-12.4); Platelet Count 324 K/uL (130-400); RDW Coefficient of Variation 12.9 % (11.5-14.5); RDW Standard Deviation 41.1 fL (36.4-46.3); Red Blood Count 4.31 M/uL (4.20-5.40); White Blood Count 12.77 K/ul (4.8-10.8)
[2024-10-08 08:24] LABS: BUN Creatinine Ratio 19.8 (10-20); Calcium 8.8 mg/dl (8.6-10.3); Creatinine Clr Calc Pharmacy 45.1 ml/min
[2024-10-08] MEDS: SODIUM CHLORIDE 0.9% 500 ML IV ONE (08:37)
[2024-10-08 09:40] LABS: Basophils # (auto) 0.02 K/uL (0.00-0.20); Basophils % (auto) 0.2 %; Eosinophils # (auto) 0.03 K/uL (0.00-0.50); Eosinophils % (auto) 0.2 %; Hematocrit (blood only) 34.2 % (37.0-47.0); Hemoglobin 11.2 g/dl (12.0-16.0); Immature Granulocytes # (auto) 0.05 K/uL (0.01-0.20); Immature Granulocytes % (auto) 0.4 %; Lymphocytes # (auto) 0.75 K/uL (1.20-3.40); Mean Corpuscular Hemoglobin 28.8 pg (25.0-34.0); Mean Corpuscular Hgb Conc 32.7 g/dL (32.0-36.0); Mean Corpuscular Volume 87.9 fL (80.0-100.0); Mean Platelet Volume 9.9 fL (9.4-12.4); Monocytes # (auto) 0.64 K/uL (0.11-0.59); Monocytes % (auto) 5.1 %; Neutrophils # (auto) 10.94 K/uL (1.40-6.50); Neutrophils % (auto) 88.1 %; Platelet Count 320 K/uL (130-400); RDW Standard Deviation 41.7 fL (36.4-46.3); Red Blood Count 3.89 M/uL (4.20-5.40); White Blood Count 12.43 K/ul (4.8-10.8)
[2024-10-08] MEDS: Heparin IV Adult Wt-Based Standard w/ INITIAL Bolus Protocol IV STA (10:09)
[2024-10-08] MEDS: HEPARIN SOD (PORCINE) 1000 UNIT/ML IV ONE (10:09)
[2024-10-08] MEDS: HEPARIN 25000 UNIT/500 ML D5W 25,000 UNITS/500 ML BAG IV SCH (10:13)
[2024-10-08 10:16] LABS: Partial Thromboplastin Ratio 1.1; Partial Thromboplastin Time 29 Seconds (21-31); Prothrombin Time 11.2 Seconds (9.0-12.0)
--- NOTE | 2024-10-08 13:40 | Infectious Disease Consult ---
Date of Consultation October 08, 2024 Assessment & Plan (1) Streptococcal bacteremia: (2) Osteomyelitis of fifth toe of right foot: (3) Gangrene of toe of right foot: (4) Peripheral arterial disease: (5) Diabetes: Plan 69yo F with no PMH who presented on 10/06 from podiatry office with wet gangrene of right fifth toe. Recently had doxycycline x 10d starting 09/04. On admission, she was afebrile, tachycardic, 1 BP 89/44 with improvement. Initial labs with WBC 8.84, Cr 0.96. CRP 2.81. CXR negative. LE arterial duplex with PAD. CTA runoff with extensive vascular disease, R>L. MRI right foot with OM of fifth toe. She is diagnosed with new onset diabetes and started on zosyn. BCx with Strep anginosus. S/p OR 10/07 and underwent amputation of right fifth toe at [facility] (per op note, fifth metatarsal head is pristine appearing white cartilage with no signs of necrosis discoloration or damage). ID consulted 10/08. TTE negative for vegetations. No hardware/devices. Bacteremia likely 2/2 infected toe. Will wait for follow up blood cx and OR cultures/path. Im going to keep her on zosyn for today for the wet gangrene and then aim to de-escalate tomorrow. Duration will depend on whether there is residual OM after her amputation, in which case would treat longer, though PO abx could be an option. # OM of right 5th toe and wet gangrene s/p amputation 10/07 # Bacteremia 2/2 Strep anginosus # New diagnosis of diabetes - continue zosyn, will likely de-escalate tomorrow (48hrs postop) pending cultures - f/u blood cx - f/u OR cx and path - final regimen/duration pending above Will continue to follow. If questions or concerns, contact via [employer] or Infectious Disease Call Center . Christina Bills MD [facility], Division of Infectious Diseases Consultation Information Consultation was provided via telemedicine using two-way real-time interactive telecommunication between the patient and the telemedicine provider. For the duration of the visit, the provider was performing the assessment from a different facility than the patient. This includesuse of bluetooth stethoscope forauscultationperformed by the telepresenter that the telemedicine provider can hear if described in the physical exam. Supervisor Assembling contact information: Please call [facility] Call Center . (Phone Number For Physician Use Only) After establishing a telemedicine visit, patient was: Patient was verified with two unique identifiers, Patient/authorized rep acknowledged consent and understanding and Gave permission to continue telehealth session Time Spent with Patient: Subsequent => 55 min History of Present Illness Reason for Consultation: Strep bacteremia from DM foot infection, duration of tx Attending Physician: Dmitriy Stewart MD History of Present Illness 69yo F with no PMH who presented on 10/06 from podiatry clinic with wet gangrene of right fifth toe. She had a blister on her right 5th toe felt to be secondary to abrasion and had gotten a course of doxycycline x 10d starting 09/04. She had minimal improvement and toe eventually became black. Seen by podiatry outpatient and they were c/f wet gangrene and OM and sent patient to the ER. She was afebrile, tachycardic, 1 BP 89/44 with improvement. Initial labs with WBC 8.84, Cr 0.96. CRP 2.81. CXR negative. LE arterial duplex with PAD. CTA runoff with extensive vascular disease, R>L. MRI right foot with OM of fifth toe. She is diagnosed with new onset diabetes and started on zosyn. BCx with Strep anginosus. S/p OR 10/07 and underwent amputation of right fifth toe at [facility] (per op note, fifth metatarsal head is pristine appearing white cartilage with no signs of necrosis discoloration or damage). ID consulted 10/08. On evaluation, patient reports feeling well. She does says that she had some redness on the vicinity of her toe when she had first come in, but no rash on her leg. She did have some swelling in her legs initially. Last dose of doxycycline was 3 weeks ago. No hardware, artificial heart valves/devices. No joint pain, back pain. No abdominal discomfort, vomiting/diarrhea. Allergies Allergy/AdvReac Type Severity Reaction Status Date / Time No Known Drug Allergies Allergy Unknown Verified 10/06/24 17:18 Patient History Surgical History History of tonsillectomy Social History Smoking Status: Never smoker Hx Alcohol Use: Yes Hx Substance Use: No Preferred Language: Swedish Communication Ability: Effective Patient Scheduling Manager Required: No Beliefs That Will Affect Care: None Current Living Situation: Spouse Feels Safe at Home: Yes Assistive Devices: None Review of System 10-point review of systems reviewed and are negative except for as above. Physical Exam Physical Exam: General: Awake, alert, no acute distress HEENT: NC/AT, EOMI, mmm Neck: supple, no LAD Lungs: respirations non-labored Heart: nl peripheral perfusion Abdomen: soft, NT/ND Back: no spinal tenderness Ext: trace LE edema, right leg with postop dressing Skin: no rash Neuro: moving all extremities Results & Data Vital Signs (Past 12 Hours) Vital Signs Temp Pulse Resp BP Pulse Ox O2 Del Method O2 Flow Rate 10/08/24 09:28 108 H 101/61 10/08/24 08:01 37.1 C 114 H 18 93/52 L 94 Nasal Cannula 2 10/08/24 05:42 36.7 C 94 H 18 108/68 95 Room Air 10/08/24 03:21 95 Nasal Cannula 2 10/08/24 03:04 37.0 C 113 H 18 112/70 94 Room Air Laboratory Results Labs reviewed. Diagnostic Findings Imaging reviewed. (5) Diabetes Diabetes mellitus complication status: with hyperglycemia Diabetes mellitus alf insulin use: without termite control servicer use Diabetes mellitus type: type 2 Qualified Code(s): E11.65 - Type 2 diabetes mellitus with hyperglycemia
--- NOTE | 2024-10-08 13:50 | XCELERA ---
[id number] \\[id number]
--- NOTE | 2024-10-08 14:43 | Podiatry Progress Note ---
Date of Service October 08, 2024 Assessment & Plan (1) Gangrene of toe of right foot: (2) Peripheral arterial disease: (3) Osteomyelitis of fifth toe of right foot: (4) Diabetes: (5) Gangrene of toe: (6) Streptococcal bacteremia: Plan Postop day 1 status post right fifth toe amputation for management of gangrene and osteomyelitis. Wound edges remain well-approximated with all sutures intact. At this point there are no signs of soft tissue necrosis along the incision line. Wound edges remain blanchable. -Dressing changed with scant sanguinous drainage to the surgical dressing. Dressing order placed for once daily dressing change cleansing wound with normal sterile saline and applying a bordered foam dressing. -Order placed for postop shoe. Patient okay to weight-bear as tolerated to the right foot in postop shoe. -Proximal margin bone pathology from fifth toe 10/07/2024: Pending. -Bone culture intraoperative fifth toe 10/07/2024: Pending -Scheduled for angiogram with possible intervention 10/09/2024. -Strep bacteremia: Patient evaluated by infectious disease. Plan to continue IV Zosyn for now with possible de-escalation 48 hours postop pending culture results. Admission and Anticipated Discharge Date Admission Date: October 06, 2024 Subjective Postop day 1 status post right fifth toe amputation. Patient resting comfortably in bedside chair with foot elevated on adjacent chair. Reports decreased discomfort to the right foot over the past 24 hours. Surgical dressing remains clean dry and intact. Review of Systems Review of Systems: Patient denies nausea, vomiting, fever, chills, malaise. Reports decreased pain to the right foot. Review of systems otherwise negative unless stated in HPI or below. Physical Exam Physical Exam: Const: Appears well developed and well nourished. No signs of acute distress present. CV: Extremities: No cyanosis or edema. Capillary refill time is less than 2 seconds all digits of the bilateral foot. Posterior tibial and dorsalis pedis pulses are lightly palpable left nonpalpable right possibly secondary to edema. Skin: Thinning atrophic skin to the bilateral lower extremity with loss of hair growth. Neuro: Decreased protective sensation in the bilateral toes. Psych: Mood/Affect: Mood is normal. Affect is normal. Cognition: Orientation is intact to person, place and time. Focused lower extremity musculoskeletal exam: Leg: No pain with compression of the calf muscle. Ankles: Normal to inspection and palpation. No signs of external injury. Edema right ankle. Right foot: Resolving erythema and edema to the right foot. No lymphangitis or streaking. Postop day 1 status post right fifth toe amputation. Wound edges remain well-approximated with all sutures intact. Wound edges remain blanchable without tension on the incision line. No active drainage. Scant sanguinous drainage to surgical dressing. Results & Data Results & Data Vital Signs (Past 12 Hours) Vital Signs Temp Pulse Resp BP Pulse Ox O2 Del Method O2 Flow Rate 10/08/24 14:18 37.6 C H 109 H 18 111/69 93 Room Air 10/08/24 09:28 108 H 101/61 10/08/24 08:01 37.1 C 114 H 18 93/52 L 94 Nasal Cannula 2 10/08/24 05:42 36.7 C 94 H 18 108/68 95 Room Air 10/08/24 03:21 95 Nasal Cannula 2 10/08/24 03:04 37.0 C 113 H 18 112/70 94 Room Air Laboratory Results -Wound culture 10/06/2024 showing group B strep and strep anginosus. Preliminary -Blood culture x 2 10/06/2024 growing Streptococcus anginosus. Preliminary Diagnostic Findings MRI right foot 10/06/2024: FINDINGS: There is extensive abnormal bone marrow edema can fluently within the phalanges of the fifth toe consistent with osteomyelitis. No signal abnormalities is seen within the fifth metatarsal. No other significant component of bone marrow edema is evident in the forefoot or midfoot. There is extensive diffuse edema in the forefoot. This is prominent in the fifth digit. There also appears to be extensive loss of the skin and subcutaneous tissues along the dorsal lateral aspect of the fifth toe. IMPRESSION: Evidence of active osteomyelitis in the phalanges of the fifth toe. Electronically signed by: Declan Goldberg MD 10/06/24 23:08 PM Lower extremity duplex arterial ultrasound 10/06/2024: Ankle-brachial indices are 0.39 on the right and 0.71 on the left. Hypoechoic soft tissue is noted in the mid and distal portions of the femoral and popliteal arteries bilaterally with patchy central blood flow seen. High-velocity flow is noted in the right proximal superficial femoral artery with a distal partially thrombosed vessel. Parvus tardus waveform is noted in the calf vessels bilaterally with a monophasic flow pattern. IMPRESSION: 1. Hypoechoic soft tissue was noted in the mid and distal portions of both superficial femoral arteries and the popliteal artery with central patchy blood flow. These findings are concerning for partial thrombosis or moderate atherosclerotic changes. CTA might prove further helpful in evaluation. 2. High-velocity flow in the right proximal superficial femoral artery with partially thrombosed distal vessel. 3. Monophasic parvus tardus waveforms in the distal calf vessels seen bilaterally. 4. Deranged ankle-brachial indices are suggestive of mild to moderate peripheral arterial disease. Electronically signed by Joseph Middleton 10-06-2024 10:08 PM Coding [place] [address] SUB INP/OBS CARE 2MIN Patient Type Established Diagnoses Gangrene of toe of right foot I96 Peripheral arterial disease I73.9 Osteomyelitis of fifth toe of right foot M86.9 Type 2 diabetes mellitus with hyperglycemia, without long-term current use of insulin E11.65 Diabetes mellitus complication status: with hyperglycemia Diabetes mellitus care home insulin use: without terminal manager use Diabetes mellitus type: type 2 Gangrene of toe I96 Streptococcal bacteremia R78.81; B95.5 (4) Diabetes Diabetes mellitus complication status: with hyperglycemia Diabetes mellitus terminal manager insulin use: without terminal manager use Diabetes mellitus type: type 2 Qualified Code(s): E11.65 - Type 2 diabetes mellitus with hyperglycemia
[2024-10-08 16:33] LABS: ANTI-Xa, UFH(UnfractionatedHep 0.23 IU/ml (0.3-0.7)
[2024-10-09] MEDS ORDERED: Nursing to Pharmacy Communication SCH (04:45)
[2024-10-09 06:27] LABS: BUN Creatinine Ratio 18.4 (10-20); Calcium 8.4 mg/dl (8.6-10.3); Creatinine Clr Calc Pharmacy 41.8 ml/min; Potassium 3.9 mmol/L (3.5-5.1)
[2024-10-09] MEDS: INSULIN ASPART PER UNIT CHARGE SC SCH ×2 (06:30→13:10)
[2024-10-09] MEDS: SODIUM CHLORIDE 0.9% 1,000 ML IV SCH ×3 (07:32→13:09)
--- NOTE | 2024-10-09 07:32 | History & Physical Bridge Note ---
Date of Service October 09, 2024 History & Physical Bridge Note Patient for rle arteriography with possible intervention today. I have discussed the risks options and benefits of the procedure with the patient. The patient understands the risks options and benefits and agrees to the procedure. I have examined the patient, reviewed the History & Physical and in the interval since the performance of the History & Physical I have noted the following changes of clinical significance: no changes noted
--- NOTE | 2024-10-09 08:12 | Pre Anesthesia Assessment ---
Date of Service October 09, 2024 Pre Sedation Assessment Vital Signs Temp Pulse Resp BP Pulse Ox O2 Del Method 10/09/24 07:37 36.9 C 96 H 18 148/65 H 95 Room Air 10/08/24 21:29 36.8 C 108 H 16 106/65 95 Room Air 10/08/24 14:18 37.6 C H 109 H 18 111/69 93 Room Air 10/08/24 09:28 108 H 101/61 Cardiovascular RRR, no murmur, no edema Respiratory normal respiratory effort, lungs clear to auscultation Pre-Sedation Airway Assessment Smoking Status: Never smoker Hx Sleep Apnea: No Short, Thick Neck: No Thyromental Distance: > or= 3.5 Finger Breadths Oral Cavity: + WNL Mallampati Class: II ASA: ASA3 NPO Status Date of Last Intake of Fluids: 10/08/24 Time of Last Intake of Fluids: 21:00 Date of Last Intake of Solid Food: 10/08/24 Time of Last Intake of Solid Foods: 18:00 Procedure Planning Contraindications for Sedation: none Current Medications Reviewed: Yes Notes The planned sedation has been discussed with the patient. Informed Consent was obtained. I have identified the patient, determined the appropriateness of sedation and have assessed the patient immediately prior to the procedure. All medicine(s) and interventions are by my order.
--- NOTE | 2024-10-09 08:45 | Hospitalist Progress Note ---
Date of Service October 09, 2024 Assessment & Plan (1) Gangrene of toe: (2) Diabetes: (3) Gram-positive bacteremia: Plan 69 F with undiagnosed diabetes presented with gangrene to right 5th toe,streptocccal diabetic foot infection with bacteremia and high blood glucoses. Partial arterial occlusion to lower extremities R>L, repeat blood cultures negative after initiation of antibiotics and angiogram with considered angioplasty/stent 10/09 to right leg Gangrene. now with amputation of right 5th toe and primary closure, strep bacteremia on 2 blood cultures with additional sets negative to date, transthoracic echo negative for Endocarditis continuing Zosyn iv however ID feels maybe able to convert to po on dc , suggest amoxil and sensitivities support Diabetes, new diagnosis, Aic 13 basal bolus insulin, nurse informatics educator recommends daily lantus with metformin( start delayed due to angiogram dye) and eventual dexcom but Bid testing for now am and another time, bp slighlty low, mild johan post procedure, but will consider stacey or arb as outpt PRESCRIPTIONS NEEDED AT DISCHARGE: 1.) Lantus Solostar Pen. 2.) Pen Needle 32 gauge x 5/32"- to inject 1x/day. 3.) Metformin. 4.) OneTouch Verio Meter. 5.) OneTouch Verio Test Strips- to check 3x/day. 6.) OneTouch Delica Lancets- to check 3x/day. PAD vascular surgery unable to advance wire thru sfa occlusion and no angioplasty able to be performed on 10/09/24, decision to proceed to fem pop bypass will be based on wound healing DVT prevention is SCD and post op will be started on heparin gtt without bolus PT is a full code Admission and Anticipated Discharge Date Admission Date: October 06, 2024 Subjective pt with unsuccessful angioplasty attempt to right SFA disappointed but realistic Physical Exam Physical Exam: awake and alert R 5th toe amputation site looks good clean and dry foot with less swelling, Results & Data Results & Data Vital Signs (Past 12 Hours) Vital Signs Temp Pulse Pulse Resp BP Pulse Ox O2 Del Method 10/09/24 08:40 94 H 16 176/88 H 99 Oxymask 10/09/24 08:35 94 H 16 159/79 H 99 Oxymask 10/09/24 08:30 94 H 16 144/95 H 98 Oxymask 10/09/24 08:25 90 16 139/69 98 Oxymask 10/09/24 08:20 97 H 16 143/67 H 98 Oxymask 10/09/24 08:15 97 H 16 173/89 H 94 Oxymask 10/09/24 07:37 98.4 F 96 H 18 148/65 H 95 Room Air 10/08/24 21:29 98.2 F 108 H 16 106/65 95 Room Air O2 Flow Rate 10/09/24 08:40 6 10/09/24 08:35 6 10/09/24 08:30 6 10/09/24 08:25 6 10/09/24 08:20 6 10/09/24 08:15 4 10/09/24 07:37 10/08/24 21:29 Laboratory Results review cbc review chemistry PG Care Time/CCT Total # of Minutes Spent Total Time Spent with Patient: Total time spent is greater than 50% in coordination of care (as documented) at patient's floor/unit and/or counseling patient: Coding Level of Care Code 87343 SUB INP/OBS CARE 3/50MIN Diagnoses Gangrene of toe I96 Type 2 diabetes mellitus with hyperglycemia, without long-term current use of insulin E11.65 Diabetes mellitus complication status: with hyperglycemia Diabetes mellitus exterminator insulin use: without custodial use Diabetes mellitus type: type 2 Gram-positive bacteremia R78.81 (2) Diabetes Diabetes mellitus complication status: with hyperglycemia Diabetes mellitus exterminator insulin use: without exterminator use Diabetes mellitus type: type 2 Qualified Code(s): E11.65 - Type 2 diabetes mellitus with hyperglycemia
[2024-10-09] MEDS: MIDAZOLAM HCL 1 MG/ML 2ML VIAL ONE ×2 (08:57→09:26)
[2024-10-09] MEDS: fentaNYL citrate PF 100 MCG/2 ML VIAL ONE (08:57)
[2024-10-09] MEDS ORDERED: LANTUS PER UNIT CHARGE SQ SCH (09:00)
[2024-10-09] MEDS: cefTRIAXone SODIUM 2,000 MG/50 ML BAG IV SCH ×2 (09:00→14:24)
[2024-10-09] MEDS: hydrALAZINE HCL 20 MG/ML VIAL ONE (09:27)
--- NOTE | 2024-10-09 09:28 | Infectious Disease Progress Nt ---
Date of Service October 09, 2024 Assessment & Plan (1) Streptococcal bacteremia: (2) Osteomyelitis of fifth toe of right foot: (3) Gangrene of toe of right foot: (4) Peripheral arterial disease: (5) Diabetes: Plan 69yo F with no PMH who presented on 10/06 from podiatry office with wet gangrene of right fifth toe. Recently had doxycycline x 10d starting 09/04. On admission, she was afebrile, tachycardic, 1 BP 89/44 with improvement. Initial labs with WBC 8.84, Cr 0.96. CRP 2.81. CXR negative. LE arterial duplex with PAD. CTA runoff with extensive vascular disease, R>L. MRI right foot with OM of fifth toe. She is diagnosed with new onset diabetes and started on zosyn. BCx with Strep anginosus. S/p OR 10/07 and underwent amputation of right fifth toe at [facility] (per op note, fifth metatarsal head is pristine appearing white cartilage with no signs of necrosis discoloration or damage). OR cx with S agalactiae and S anginosus. ID consulted 10/08. TTE negative for vegetations. No hardware/devices. Arteriography with possible intervention today. Based on op note, it seems that the cultures were of the proximal phalanx, which was amputated. She has path pending of the proximal margin. Will favor waiting for proximal margin path to determine whether she needs longer treatment. Please note, if she has OM and also has adequate vascular supply after todays procedure, then PO antibiotics can be used. However, if poor vascular supply with OM, then IV would be needed. Awaiting repeat blood cx from 10/08. She doesnt have any other organisms growing so will de-escalate zosyn to CTX today. # OM of right 5th toe and wet gangrene s/p 5th toe amputation 10/07 cx with Strep # Bacteremia 2/2 Strep anginosus # New diagnosis of diabetes # Peripheral arterial disease vascular intervention 10/09 - Mery changed zosyn to CTX 2g IV daily - f/u blood cx and susceptibilities - f/u OR cx and path - if pathology is negative for OM in the proximal margin, then she can complete a 2 week course of antibiotics for Strep bacteremia starting from negative BCx (10/07 cx are of the amputated toe) could use amoxicillin 1g PO tid if sensitive - if pathology is positive for OM, then she will need 6wks of abx for OM (PO if vascular supply is adequate after todays procedure, IV if still inadequate) ID service will continue to follow. Please note that there will be no ID notes over the weekend. If questions or concerns arise, please contact the Infectious Disease Call Center and ask to speak with the covering ID physician. Dr. Joshua will take over on Saturday. Christina Bills MD [facility], Division of Infectious Diseases Admission and Anticipated Discharge Date Admission Date: October 06, 2024 Subjective This patient recommendation is based on a telemedicine consult request which was completed asynchronously through chart review and information provided by the primary physician. The patient was not seen or examined today. The evaluation is consultative in nature and all patient care and treatment decisions can either be accepted or rejected by the patient's primary hospital-based treating physician using their own independent medical judgment for their patient. Time Spent Reviewing Chart: 31+ minutes Afebrile. Results & Data Vital Signs (Past 12 Hours) Vital Signs Temp Pulse Pulse Resp BP Pulse Ox O2 Del Method 10/09/24 09:25 99 H 16 180/74 H 100 Oxymask 10/09/24 09:20 95 H 16 134/85 100 Oxymask 10/09/24 09:15 93 H 16 166/82 H 100 Oxymask 10/09/24 09:10 97 H 16 176/85 H 100 Oxymask 10/09/24 09:05 96 H 16 169/73 H 100 Oxymask 10/09/24 09:00 94 H 16 149/88 H 100 Oxymask 10/09/24 08:55 94 H 16 175/84 H 98 Oxymask 10/09/24 08:50 94 H 16 153/83 H 99 Oxymask 10/09/24 08:45 93 H 16 146/87 H 99 Oxymask 10/09/24 08:40 94 H 16 176/88 H 99 Oxymask 10/09/24 08:35 94 H 16 159/79 H 99 Oxymask 10/09/24 08:30 94 H 16 144/95 H 98 Oxymask 10/09/24 08:25 90 16 139/69 98 Oxymask 10/09/24 08:20 97 H 16 143/67 H 98 Oxymask 10/09/24 08:15 97 H 16 173/89 H 94 Oxymask 10/09/24 07:37 36.9 C 96 H 18 148/65 H 95 Room Air 10/08/24 21:29 36.8 C 108 H 16 106/65 95 Room Air O2 Flow Rate 10/09/24 09:25 5 10/09/24 09:20 5 10/09/24 09:15 6 10/09/24 09:10 6 10/09/24 09:05 6 10/09/24 09:00 6 10/09/24 08:55 6 10/09/24 08:50 6 10/09/24 08:45 6 10/09/24 08:40 6 10/09/24 08:35 6 10/09/24 08:30 6 10/09/24 08:25 6 10/09/24 08:20 6 10/09/24 08:15 4 10/09/24 07:37 10/08/24 21:29 Laboratory Results Labs reviewed. (5) Diabetes Diabetes mellitus type: type 2 Diabetes mellitus mcfp insulin use: without superintendent terminal use Diabetes mellitus complication status: with hyperglycemia Qualified Code(s): E11.65 - Type 2 diabetes mellitus with hyperglycemia
--- NOTE | 2024-10-09 09:39 | Procedure Note ---
Angiogram Post Procedure Fluoroscopy Time (minutes): 14.4 Conscious Sedation Time (minutes): 91 Radiation (mGy): 108 Contrast: 70 Post Operative Report Pre & Post Diagnosis Operation Date: 10/09/24 08:00 Pre-Op Diagnosis: FIFTH RIGHT TOE GANGRENE Post-Op Diagnosis: FIFTH RIGHT TOE GANGRENE I identified the patient and participated in the time-out.: Yes Procedure Operation Date: 10/09/24 08:00 Actual Procedures p Right Leg Angiogram,Percutaneous Transluminal Angioplasty of Right Superficial Femoral Artery,Ultrasound Localization of Left Femoral Artery,Moderate Sedation [id number](Left) - Frank Lewis MD Surgeon Frank Lewis MD Brass Reclaimer none Estimated Blood Loss 40 Findings Consistent with Post-Op Diagnosis Specimens none Anesthesia Type RN Sedation Complications none Disposition Accompanied Patient To Recovery: No Disposition: Recovery Room Indications This is a 69-year-old female who was recently found to have diabetes. She presented with a gangrenous right fifth toe which underwent amputation. Noninvasive suggested right superficial femoral artery as well as infrapopliteal artery occlusions. Arteriography possible invention was recommended. I have discussed the risks options and benefits of the procedure with the patient. The patient understands the risks options and benefits and agrees to the procedure. Description of Procedure The patient was taken the angio suite and placed spine position. After the groins were prepped draped in a sterile manner a timeout was performed and the patient was identified. Using ultrasound the left common femoral artery was identified. Had mild plaque present but was patent. Under ultrasound guidance the left common femoral artery was punctured and 5 Portuguese sheath inserted. Using a rim catheter and a 3 5 Glidewire the right side was cannulated for the left side. The rim catheter was advanced to the proximal common femoral artery. Geography was performed which showed an occluded superficial femoral artery just at its origin all the way down to the proximal popliteal reconstituted for short distance. The tibioperoneal trunk was then occluded as well as the very distal popliteal. The anterior tibial reconstituted beyond the interosseous membrane and the posterior tibial reconstituted just beyond its origin. Both vessels are ran across the ankle to the foot. We then tried to pass a guidewire through the lesion. This was successful with some difficulty. We did pass the quick cross catheter and exchanged the wire to a stiff wire. We then exchanged the sheath to a 7 Portuguese sheath. We inserted a 4 balloon to try and dilate the distal lesion. The balloon would not pass through the proximal lesions. We then exchanged the balloon to a 6 x 100 [place] balloon. This was able to be passed into the superficial femoral artery and the superficial femoral was dilated. Postdilatation arteriography showed still no flow through the superficial femoral artery with recoiling of the artery wall. Due to the length of the superficial femoral artery occlusion as well as the infrapopliteal occlusion of the decided to abandon any further endovascular invention. We we will see how the healing goes of the amputation site or next few days. If heal ing is poor then a bypass will be needed to either the anterior tibial or posterior tibial arteries. The 035 wire was reinserted. The sheath was pulled the puncture closed with a Star closure device. After hemostasis was noted. Pressure dressing was applied to the wound.The patient left the operation room in satisfactory condition and tolerated the procedure well. All needle and sponge counts were correct at the end of the procedure. I attest to the content of the Intraoperative Record and any orders documented therein. Any exceptions are noted below.
--- NOTE | 2024-10-09 09:41 | Post Anesthesia Assessment ---
Date of Service October 09, 2024 Post Sedation Assessment Vital Signs Temp Pulse Pulse Resp BP Pulse Ox O2 Del Method 10/09/24 09:40 103 H 16 128/68 94 Room Air 10/09/24 09:35 104 H 16 145/94 H 100 Oxymask 10/09/24 09:30 99 H 16 170/90 H 100 Oxymask 10/09/24 09:25 99 H 16 180/74 H 100 Oxymask 10/09/24 09:20 95 H 16 134/85 100 Oxymask 10/09/24 09:15 93 H 16 166/82 H 100 Oxymask 10/09/24 09:10 97 H 16 176/85 H 100 Oxymask 10/09/24 09:05 96 H 16 169/73 H 100 Oxymask 10/09/24 09:00 94 H 16 149/88 H 100 Oxymask 10/09/24 08:55 94 H 16 175/84 H 98 Oxymask 10/09/24 08:50 94 H 16 153/83 H 99 Oxymask 10/09/24 08:45 93 H 16 146/87 H 99 Oxymask 10/09/24 08:40 94 H 16 176/88 H 99 Oxymask 10/09/24 08:35 94 H 16 159/79 H 99 Oxymask 10/09/24 08:30 94 H 16 144/95 H 98 Oxymask 10/09/24 08:25 90 16 139/69 98 Oxymask 10/09/24 08:20 97 H 16 143/67 H 98 Oxymask 10/09/24 08:15 97 H 16 173/89 H 94 Oxymask 10/09/24 07:37 36.9 C 96 H 18 148/65 H 95 Room Air 10/08/24 21:29 36.8 C 108 H 16 106/65 95 Room Air 10/08/24 14:18 37.6 C H 109 H 18 111/69 93 Room Air O2 Flow Rate 10/09/24 09:40 10/09/24 09:35 5 10/09/24 09:30 5 10/09/24 09:25 5 10/09/24 09:20 5 10/09/24 09:15 6 10/09/24 09:10 6 10/09/24 09:05 6 10/09/24 09:00 6 10/09/24 08:55 6 10/09/24 08:50 6 10/09/24 08:45 6 10/09/24 08:40 6 10/09/24 08:35 6 10/09/24 08:30 6 10/09/24 08:25 6 10/09/24 08:20 6 10/09/24 08:15 4 10/09/24 07:37 10/08/24 21:29 10/08/24 14:18 Recovery Score Activity: Moves 4 extremities Respiration: Deep Breath/Cough Circulation: +/-20% PreAnes Value Consciousness: Fully Awake Oxygen Saturation: > 92% On Room Air Post Anesthesia Score: 10 Discharge Sedation Level of Care: Fast Track Phase II Post Sedation Plan On clinical assessment, the patient appears to have tolerated the sedation without complications. Patient is recovering as anticipated. Patient will continue to be monitored by nursing and may be discharged when sedation discharge criteria are met per below protocol. Upon Completions of procedure up to 15 minutes continue every 5 minute vital signs and the P.A.R. score; then discharge to a Phase I or Fast Track to Phase II per the following guidelines: * Discharge Patient to appropriate Phase II area if PAR is 8 or greater or return to pre- procedure baseline. The post - procedure orders will be as directed. * If PAR score is less than 8 or not return to pre-procedure baseline then patient will follow Phase I monitoring till PAR is reached for Phase II. The Phase I may be done in procedure room or may call to secure a Phase I area. * If naloxone or flumazenil are used for reversal, hold in Phase I for continued monitoring from when last reversal dose was given for a minimum of 60 minutes or longer pending the nurse and/or physician discretion of patient condition before discharge to Phase II. Please call the Sedation Physician to re-evaluate and complete post-note for discharge to Phase II area. Do NOT discharge from procedure sedation or Phase 1 until post- sedation evaluation note is complete by procedure /sedation MD Sedation Discharge Instructions to be given to the patient at discharge to home.
[2024-10-09] MEDS: LIDOCAINE 1% LOCAL 20 ML VIAL ONE (09:44)
[2024-10-09] MEDS: VISIPAQUE IV PRN (09:45)
[2024-10-09] MEDS: LANTUS PER UNIT CHARGE SQ SCH (10:31)
--- NOTE | 2024-10-09 12:33 | Hospitalist Progress Note ---
Date of Service September Assessment & Plan (1) Gangrene of toe: (2) Diabetes: (3) Gram-positive bacteremia: Plan 69 F with undiagnosed diabetes presented with gangrene to right 5th toe,streptoccocal diabetic foot infection with bacteremia and high blood glucoses. Partial arterial occlusion to lower extremities R>L, repeat blood cultures negative after initiation of antibiotics and angiogram with considered angioplasty/stent 10/09 to right leg, mild johan and acute blood loss anemia post op Gangrene. now with amputation of right 5th toe and primary closure, strep bacteremia on 08/23 blood cultures with additional sets negative to date, transthoracic echo negative for Endocarditis continuing Zosyn iv however ID feels maybe able to convert to po on dc Diabetes, new diagnosis, Aic 13 basal bolus insulin, certified diabetes educator recommends daily lantus with metformin( start delayed due to angiogram dye) and eventual dexcom but Bid testing for now am and another time, bp slighlty low, mild johan post procedure, but will consider stacey or arb as outpt PRESCRIPTIONS NEEDED AT DISCHARGE: 1.) Lantus Solostar Pen. 2.) Pen Needle 32 gauge x 5/32"- to inject 1x/day. 3.) Metformin. 4.) OneTouch Verio Meter. 5.) OneTouch Verio Test Strips- to check 3x/day. 6.) OneTouch Delica Lancets- to check 3x/day. PAD vascular surgery unable to advance wire thru sfa occlusion and no angioplasty able to be performed on 10/09/24, decision to proceed to fem pop bypass will be based on wound healing DVT prevention is SCD and post op will be started on heparin gtt without bolus PT is a full code Admission and Anticipated Discharge Date Admission Date: October 06, 2024 Subjective This is a late entry note for visit of 10/08/24 Pt is doing well, anxious regarding upcoming angioplasty, foot is without significant pain beginning to master diabetic care and carb counting Physical Exam Physical Exam: awake and alert R 5th toe amputation site looks good clean and dry foot with less swelling, Results & Data Results & Data Vital Signs (Past 12 Hours) Vital Signs Temp Pulse Pulse Resp BP BP Pulse Ox 10/09/24 11:53 98.4 F 94 H 17 138/78 97 10/09/24 11:22 98.6 F 95 H 16 142/81 H 97 10/09/24 10:52 98.6 F 96 H 16 142/79 H 97 10/09/24 10:37 98.6 F 97 H 15 135/77 98 10/09/24 10:22 100 H 18 142/79 H 91 10/09/24 10:07 98.4 F 100 H 16 143/79 H 97 10/09/24 09:44 100 H 16 130/77 96 10/09/24 09:40 103 H 16 128/68 94 10/09/24 09:35 104 H 16 145/94 H 100 10/09/24 09:30 99 H 16 170/90 H 100 10/09/24 09:25 99 H 16 180/74 H 100 10/09/24 09:20 95 H 16 134/85 100 10/09/24 09:15 93 H 16 166/82 H 100 10/09/24 09:10 97 H 16 176/85 H 100 10/09/24 09:05 96 H 16 169/73 H 100 10/09/24 09:00 94 H 16 149/88 H 100 10/09/24 08:55 94 H 16 175/84 H 98 10/09/24 08:50 94 H 16 153/83 H 99 10/09/24 08:45 93 H 16 146/87 H 99 10/09/24 08:40 94 H 16 176/88 H 99 10/09/24 08:35 94 H 16 159/79 H 99 10/09/24 08:30 94 H 16 144/95 H 98 10/09/24 08:25 90 16 139/69 98 10/09/24 08:20 97 H 16 143/67 H 98 10/09/24 08:15 97 H 16 173/89 H 94 10/09/24 07:37 98.4 F 96 H 18 148/65 H 95 O2 Del Method O2 Flow Rate 10/09/24 11:53 Nasal Cannula 2 10/09/24 11:22 Nasal Cannula 2.5 10/09/24 10:52 Nasal Cannula 2.5 10/09/24 10:37 Nasal Cannula 2.5 10/09/24 10:22 Room Air 10/09/24 10:07 Room Air 10/09/24 09:44 Room Air 10/09/24 09:40 Room Air 10/09/24 09:35 Oxymask 5 10/09/24 09:30 Oxymask 5 10/09/24 09:25 Oxymask 5 10/09/24 09:20 Oxymask 5 10/09/24 09:15 Oxymask 6 10/09/24 09:10 Oxymask 6 10/09/24 09:05 Oxymask 6 10/09/24 09:00 Oxymask 6 10/09/24 08:55 Oxymask 6 10/09/24 08:50 Oxymask 6 10/09/24 08:45 Oxymask 6 10/09/24 08:40 Oxymask 6 10/09/24 08:35 Oxymask 6 10/09/24 08:30 Oxymask 6 10/09/24 08:25 Oxymask 6 10/09/24 08:20 Oxymask 6 10/09/24 08:15 Oxymask 4 10/09/24 07:37 Room Air Laboratory Results review cbc review chemistry PG Care Time/CCT Total # of Minutes Spent Total Time Spent with Patient: Total time spent is greater than 50% in coordination of care (as documented) at patient's floor/unit and/or counseling patient: Coding Level of Care Code 71331 SUB INP/OBS CARE 350MIN Diagnoses Gangrene of toe I96 Type 2 diabetes mellitus with hyperglycemia, without long-term current use of insulin E11.65 Diabetes mellitus type: type 2 Diabetes mellitus residential insulin use: without residential use Diabetes mellitus complication status: with hyperglycemia Gram-positive bacteremia R78.81 (2) Diabetes Diabetes mellitus type: type 2 Diabetes mellitus intermission coordinator insulin use: without intermission coordinator use Diabetes mellitus complication status: with hyperglycemia Qualified Code(s): E11.65 - Type 2 diabetes mellitus with hyperglycemia
[2024-10-09 14:08] LABS: ANTI-Xa, UFH(UnfractionatedHep < 0.10 IU/ml (0.3-0.7)
--- NOTE | 2024-10-09 15:24 | Podiatry Progress Note ---
Date of Service October 09, 2024 Assessment & Plan (1) Streptococcal bacteremia: (2) Gangrene of toe of right foot: (3) Peripheral arterial disease: (4) Osteomyelitis of fifth toe of right foot: (5) Diabetes: Plan Postop day 2 status post right fifth toe amputation for management of gangrene and osteomyelitis. Wound edges remain well-approximated with all sutures intact. At this point there are no signs of soft tissue necrosis along the incision line. Wound edges remain blanchable. She is status post angiogram earlier this morning. Unable to advance guidewire through SFA occlusion and is no angioplasty was able to be performed. Potential need for lower extremity a rterial bypass patient is struggling to heal wound on the right foot. -Dressing changed without drainage to the dressing. Dressing order placed for once daily dressing change cleansing wound with normal sterile saline and applying a bordered foam dressing. -Okay to continue to weight-bear as tolerated to the right foot in postop shoe. -Proximal margin bone pathology from fifth toe 10/07/2024: Pending. -Bone culture intraoperative fifth toe 10/07/2024: Pending -Strep bacteremia: Patient evaluated by infectious disease. Zosyn transition to CTX 2 g IV daily today. Patient will continue 2-week course of IV antibiotics for strep bacteremia. Clinically patient has a significant reduction in erythema and edema to the right foot over the past 48 hours. Wound edges appear to be healing without incident at this time with blanchable skin edges. Will continue to monitor wound healing and signs of local soft tissue infection. Regardless of the outcome of pathology results for proximal margin I think it would be reasonable to discontinue IV antibiotics after 2 weeks from a foot standpoint as long as the wound is well-healed without signs of persistent infection. Patient okay for discharge from podiatry standpoint. She is encouraged to continue postop shoe at all times while weightbearing until follow-up. Minimize weightbearing when possible. Dressing every other day with dry sterile dressing to the right foot amputation site. Follow-up in the podiatry clinic within 1 week of discharge. Admission and Anticipated Discharge Date Admission Date: October 06, 2024 Subjective Patient seen resting comfortably in hospital bed status post endovascular inter vention. Reports loss of appetite following procedure. Otherwise patient reports feeling well today. Denies nausea, vomiting, fever, chills. Denies pain in the right foot. Reports increased range of motion and sensation to the right foot. Review of Systems Review of Systems: Loss of appetite. Denies nausea vomiting fever chills. Review of systems otherwise negative unless detailed in HPI. Physical Exam Physical Exam: Const: Appears well developed and well nourished. No signs of acute distress present. CV: Extremities: No cyanosis or edema. Capillary refill time is less than 2 seconds all digits of the bilateral foot. Posterior tibial and dorsalis pedis pulses are lightly palpable left nonpalpable right possibly secondary to edema. Skin: Thinning atrophic skin to the bilateral lower extremity with loss of hair growth. Neuro: Decreased protective sensation in the bilateral toes. Psych: Mood/Affect: Mood is normal. Affect is normal. Cognition: Orientation is intact to person, place and time. Focused lower extremity musculoskeletal exam: Leg: No pain with compression of the calf muscle. Ankles: Normal to inspection and palpation. No signs of external injury. Edema right ankle. Right foot: Resolving erythema and edema to the right foot. No lymphangitis or streaking. Postop day 2 status post right fifth toe amputation. Wound edges remain well-approximated with all sutures intact. Wound edges remain blanchable without tension on the incision line. No active drainage. Scant sanguinous drainage to surgical dressing. Results & Data Results & Data Vital Signs (Past 12 Hours) Vital Signs Temp Pulse Pulse Resp BP BP Pulse Ox 10/09/24 13:49 37.4 C 97 H 18 117/68 95 10/09/24 11:53 36.9 C 94 H 17 138/78 97 10/09/24 11:22 37 C 95 H 16 142/81 H 97 10/09/24 10:52 37 C 96 H 16 142/79 H 97 10/09/24 10:37 37.0 C 97 H 15 135/77 98 10/09/24 10:22 100 H 18 142/79 H 91 10/09/24 10:07 36.9 C 100 H 16 143/79 H 97 10/09/24 09:44 100 H 16 130/77 96 10/09/24 09:40 103 H 16 128/68 94 10/09/24 09:35 104 H 16 145/94 H 100 10/09/24 09:30 99 H 16 170/90 H 100 10/09/24 09:25 99 H 16 180/74 H 100 10/09/24 09:20 95 H 16 134/85 100 10/09/24 09:15 93 H 16 166/82 H 100 10/09/24 09:10 97 H 16 176/85 H 100 10/09/24 09:05 96 H 16 169/73 H 100 10/09/24 09:00 94 H 16 149/88 H 100 10/09/24 08:55 94 H 16 175/84 H 98 10/09/24 08:50 94 H 16 153/83 H 99 10/09/24 08:45 93 H 16 146/87 H 99 10/09/24 08:40 94 H 16 176/88 H 99 10/09/24 08:35 94 H 16 159/79 H 99 10/09/24 08:30 94 H 16 144/95 H 98 10/09/24 08:25 90 16 139/69 98 10/09/24 08:20 97 H 16 143/67 H 98 10/09/24 08:15 97 H 16 173/89 H 94 10/09/24 07:37 36.9 C 96 H 18 148/65 H 95 O2 Del Method O2 Flow Rate 10/09/24 13:49 Nasal Cannula 2 10/09/24 11:53 Nasal Cannula 2 10/09/24 11:22 Nasal Cannula 2.5 10/09/24 10:52 Nasal Cannula 2.5 10/09/24 10:37 Nasal Cannula 2.5 10/09/24 10:22 Room Air 10/09/24 10:07 Room Air 10/09/24 09:44 Room Air 10/09/24 09:40 Room Air 10/09/24 09:35 Oxymask 5 10/09/24 09:30 Oxymask 5 10/09/24 09:25 Oxymask 5 10/09/24 09:20 Oxymask 5 10/09/24 09:15 Oxymask 6 10/09/24 09:10 Oxymask 6 10/09/24 09:05 Oxymask 6 10/09/24 09:00 Oxymask 6 10/09/24 08:55 Oxymask 6 10/09/24 08:50 Oxymask 6 10/09/24 08:45 Oxymask 6 10/09/24 08:40 Oxymask 6 10/09/24 08:35 Oxymask 6 10/09/24 08:30 Oxymask 6 10/09/24 08:25 Oxymask 6 10/09/24 08:20 Oxymask 6 10/09/24 08:15 Oxymask 4 10/09/24 07:37 Room Air Coding Level of Care Code 75098 SUB INP/OBS CARE 2MIN Diagnoses Streptococcal bacteremia R78.81; B95.5 Gangrene of toe of right foot I96 Peripheral arterial disease I73.9 Osteomyelitis of fifth toe of right foot M86.9 Type 2 diabetes mellitus with hyperglycemia, without long-term current use of insulin E11.65 Diabetes mellitus type: type 2 Diabetes mellitus long-term insulin use: without terminal operations manager use Diabetes mellitus complication status: with hyperglycemia (5) Diabetes Diabetes mellitus type: type 2 Diabetes mellitus terminal operations manager insulin use: without long-term use Diabetes mellitus complication status: with hyperglycemia Qualified Code(s): E11.65 - Type 2 diabetes mellitus with hyperglycemia
[2024-10-09 19:12] LABS: ANTI-Xa, UFH(UnfractionatedHep 0.12 IU/ml (0.3-0.7)
[2024-10-09] MEDS: HEPARIN SOD (PORCINE) 1000 UNIT/ML IV ONE (20:00)
[2024-10-09] MEDS: HEPARIN SOD (PORCINE) 1000 UNIT/ML ONE (21:48)
[2024-10-10 01:40] LABS: ANTI-Xa, UFH(UnfractionatedHep 0.24 IU/ml (0.3-0.7)
--- NOTE | 2024-10-10 07:38 | Hospitalist Progress Note ---
Date of Service October 10, 2024 Assessment & Plan (1) Gangrene of toe: (2) Diabetes: (3) Gram-positive bacteremia: Plan 69 F with undiagnosed diabetes presented with gangrene to right 5th toe, diabetic foot infection with bacteremia(streptococcal) and high blood glucoses. Partial arterial occlusion to lower extremities R>L, repeat blood cultures negative after initiation of antibiotics and angiogram with considered angioplasty/stent 10/09 to right leg was unsuccessful, decision to revascularize based on wound healing, ID feels home on po antibiotics 2 week minimum Gangrene. now with amputation of right 5th toe and primary closure, strep bacteremia on 2/2 blood cultures with additional sets negative to date, transthoracic echo negative for Endocarditis continuing ceftriaxone iv however ID feels able to convert to po on dc , podiatry feels good surgical margins, suggest amoxil and sensitivities support Diabetes, new diagnosis, Aic 13 basal bolus insulin, nutrition educator recommends daily lantus with metformin( start delayed due to angiogram dye) and eventual dexcom but Bid testing for now am and another time, bp slightly low, mild johan post procedure has resolved with nss, but will consider stacey or arb as outpt PRESCRIPTIONS NEEDED AT DISCHARGE: 1.) Lantus Solostar Pen. 2.) Pen Needle 32 gauge x 5/32"- to inject 1x/day. 3.) Metformin. 4.) OneTouch Verio Meter. 5.) OneTouch Verio Test Strips- to check 3x/day. 6.) OneTouch Delica Lancets- to check 3x/day. PAD vascular surgery unable to advance wire thru sfa occlusion and no angioplasty able to be performed on 10/09/24, decision to proceed to fem pop bypass will be based on wound healing, remains on heparin, need to discuss with vasc surgery if asprin or other needed and feeling on statin DVT prevention is SCD and post op will be started on heparin gtt without bolus PT is a full code Admission and Anticipated Discharge Date Admission Date: October 06, 2024 Subjective pt with unsuccessful angioplasty attempt to right SFA 10/09/24, pt is worried about eventually losing her leg, supported her that her would looks good and with control of risk factors and consideration of revascularization, she is likely not going to have further issues, did discuss further risk factor modification to be discussed at pcp such as stacey I and statin, likely also need to look at carotids etc no pain to surgical site, better glucose control Physical Exam Physical Exam: awake and alert R 5th toe amputation site looks good clean and dry, pulses still challenging to find, cap refill is appropriate foot swelling resolved Results & Data Results & Data Vital Signs (Past 12 Hours) Vital Signs Temp Pulse Resp BP Pulse Ox O2 Del Method 10/10/24 07:31 98.4 F 95 H 17 166/93 H 95 Room Air 10/10/24 03:42 98.6 F 98 H 16 163/80 H 91 Room Air 10/09/24 23:49 98.4 F 95 H 16 115/73 92 Room Air 10/09/24 20:03 98.8 F 106 H 14 141/89 H 92 Room Air Laboratory Results review cbc, acute blood loss anemia review chemistry, imroved johan PG Care Time/CCT Total # of Minutes Spent Total Time Spent with Patient: Total time spent is greater than 50% in coordination of care (as documented) at patient's floor/unit and/or counseling patient: Coding Level of Care Code 39624 SUB INP/OBS CARE 3/50MIN Diagnoses Gangrene of toe I96 Type 2 diabetes mellitus with hyperglycemia, without long-term current use of insulin E11.65 Diabetes mellitus complication status: with hyperglycemia Diabetes mellitus terminal gauger insulin use: without residential use Diabetes mellitus type: type 2 Gram-positive bacteremia R78.81 (2) Diabetes Diabetes mellitus complication status: with hyperglycemia Diabetes mellitus residential insulin use: without terminal gauger use Diabetes mellitus type: type 2 Qualified Code(s): E11.65 - Type 2 diabetes mellitus with hyperglycemia
[2024-10-10 07:53] LABS: Basophils # (auto) 0.01 K/uL (0.00-0.20); Basophils % (auto) 0.1 %; Eosinophils % (auto) 2.7 %; Hematocrit (blood only) 31.4 % (37.0-47.0); Hemoglobin 10.3 g/dl (12.0-16.0); Immature Granulocytes # (auto) 0.02 K/uL (0.01-0.20); Immature Granulocytes % (auto) 0.3 %; Lymphocytes # (auto) 0.98 K/uL (1.20-3.40); Lymphocytes % (auto) 13.1 %; Mean Corpuscular Hemoglobin 28.9 pg (25.0-34.0); Mean Corpuscular Hgb Conc 32.8 g/dL (32.0-36.0); Mean Corpuscular Volume 88.2 fL (80.0-100.0); Mean Platelet Volume 9.7 fL (9.4-12.4); Neutrophils # (auto) 5.65 K/uL (1.40-6.50); Neutrophils % (auto) 75.8 %; Platelet Count 301 K/uL (130-400); RDW Coefficient of Variation 12.7 % (11.5-14.5); RDW Standard Deviation 41.6 fL (36.4-46.3); Red Blood Count 3.56 M/uL (4.20-5.40); White Blood Count 7.46 K/ul (4.8-10.8)
[2024-10-10 08:13] LABS: BUN Creatinine Ratio 14.5 (10-20); Calcium 8.5 mg/dl (8.6-10.3); Creatinine Clr Calc Pharmacy 74.7 ml/min; Potassium 3.6 mmol/L (3.5-5.1)
[2024-10-10 08:21] LABS: ANTI-Xa, UFH(UnfractionatedHep 0.21 IU/ml (0.3-0.7)
[2024-10-10 14:43] LABS: PTT LA Screen 41 sec (<=40)
[2024-10-10 16:30] LABS: ANTI-Xa, UFH(UnfractionatedHep 0.18 IU/ml (0.3-0.7)
[2024-10-10] MEDS: HEPARIN SOD (PORCINE) 1000 UNIT/ML IV ONE (16:48)
[2024-10-10 21:42] LABS: Anti Cardiolipin Ab IgG <2.0 GPL-U/mL; Anti Cardiolipin Ab IgM 9.7 MPL-U/mL; B2 Glycoprotein IgG <2.0 U/mL (<20.0); B2 Glycoprotein IgM 9.2 U/mL (<20.0)
[2024-10-10 23:38] LABS: ANTI-Xa, UFH(UnfractionatedHep 0.27 IU/ml (0.3-0.7)
[2024-10-11 05:52] LABS: Hematocrit (blood only) 32.2 % (37.0-47.0); Hemoglobin 10.5 g/dl (12.0-16.0); Mean Corpuscular Hemoglobin 29.1 pg (25.0-34.0); Mean Corpuscular Hgb Conc 32.6 g/dL (32.0-36.0); Mean Corpuscular Volume 89.2 fL (80.0-100.0); Mean Platelet Volume 9.8 fL (9.4-12.4); Platelet Count 309 K/uL (130-400); RDW Coefficient of Variation 12.9 % (11.5-14.5); RDW Standard Deviation 42.4 fL (36.4-46.3); Red Blood Count 3.61 M/uL (4.20-5.40); White Blood Count 6.27 K/ul (4.8-10.8)
[2024-10-11 06:11] LABS: BUN Creatinine Ratio 14.6 (10-20); C Reactive Protein 8.87 mg/dl (0-0.5); Calcium 8.9 mg/dl (8.6-10.3); Creatinine Clr Calc Pharmacy 69.3 ml/min; Potassium 3.3 mmol/L (3.5-5.1)
--- NOTE | 2024-10-11 07:57 | Hospitalist Progress Note ---
Date of Service October 11, 2024 Assessment & Plan (1) Gangrene of toe: (2) Diabetes: (3) Gram-positive bacteremia: Plan 69 F without known prior diagnosis of DM (A1c 13, family hx) presented with gangrene RIGHT 5th toe/diabetic foot infection (reported worsened over ~5 wk period of time) and also with streptococcal bacteremia. #PAD/Gangrenous 5th R toe/DM foot infection Partial arterial occlusion to lower extremities R>L, angiogram performed and Podiatry/vascular consulted s/p amputation 5th tight toe with primary closure by Dr Wild on 10/07, pathology pending Attempted angioplasty and stent on 10/[address] Lewis which was unsuccessful as unable to advance wire through SFA occlusion, decision to revascularize w/ fem pop bypass based on wound healing by Dr Lewis on repeat eval 10/12 Remains on heparin and will need to discuss w/ vascular about aspirin or other needed and feeling on statin therapy - to hold off for now ID rec continued Ceftriaxone Repeat blood cultures negative after initiation of antibiotics and per ID if pathology negative for OM can complete 2wk course abx for strep bacteremia from negative BCx 10/07 on Amoxicililn 1gm TID if sensitive. If pathology positive, then 6wks abx(PO if vascular supply adequate vs IV if still inadequate) CRP further elevated to 8 however and does have ulceration to lateral fourth toe on the right concerning for possible need for further intervention pending finalized pathology Monitor labs/exam in AM #Bacteremia- as above, suspected 2nd to diabetic foot infection/gangrenous 5th R toe. ECHO negative for vegetation and ID consulted/de-escalated abx to CTX as above. Ongoing abx pending wound healing/possible further vascular intervention with bypass #DM II- NEW DIAGNOSIS A1c 13, basal bolus insulin, hospice educator recommends daily lantus with metformin( start delayed due to angiogram dye) and eventual dexcom PRESCRIPTIONS NEEDED AT DISCHARGE: 1.) Lantus Solostar Pen. 2.) Pen Needle 32 gauge x 5/32"- to inject 1x/day. 3.) Metformin. 4.) OneTouch Verio Meter. 5.) OneTouch Verio Test Strips- to check 3x/day. 6.) OneTouch Delica Lancets- to check 3x/day. #Elevated homocysteine level Homocysteine level returned at 13, elevated in setting PAD Note does have hypercoag labs from admission for concerns thrombosis and does have slight elevation in antithrombin III activity. Homocysteine can inhibit antithrombin III's anticoagulation effects Checking B12/folate, consider empiric B6 Consider touching base w/ AC clinic provider in Saturday, will start B12/B6 in meantime. Hopefully would help w/ inflammatory component and does have elevated CRP above #SHEILA- mild SHEILA post-procedure, has resolved w/ NSS #HTN- noted but stable in hospital setting/pain from above. Monitor but consider MARC/ARB for cardiorenal protection #HLD- lipid panel w/ TRG 221, Cholesterol 217 w/ LDL 136 and [place] plan for statin therapy [place] defer for now while inpatient #Hypokalemia- K 3.3 on AM labs, 20meq PO x 1 and check mag. BMP in AM. Encouraged adequate nutrition for wound healing, will add boost to meals for increased protein to promote healing DVT proph: SCD, Heparin gtt continued PT consult placed Dispo: continued inpatient stay and repeat eval by podiatry/vascular in AM and will need f/u pathology from amputation. Admission and Anticipated Discharge Date Admission Date: October 06, 2024 Supervising Physician Co-Signing Physician Notes The patient was not seen by me. The chart was reviewed. Case discussed with DAPHNE Velez. Agree with assessment and plan Subjective Eval after 11am, in room. Pain reasonable with tylenol, occasional shooting pain. Discussed gabapentin 100mg prn for tonight if would like to trial and will add. Discussed homocysteine level, b12/folate levels to be checked. Sensation to pressure intact, does appear slightly reduced light touch likely from DM. Foot warm, did work w/ PT yesterday, might have increased swelling from that at that time but has been trying to keep extremity elevated. Appetite ok but has been trying to watch what she's eating. Discussed banana daily/monitoring BMP. Does have small ulceration to lateral FOURTH toe on the right foot, waiting for pathology but discussed will have nursing apply Aquacell at this time. VSS. Physical Exam Physical Exam: 69yo female sitting up in bed, i n room, NAD, depressed affect about continued inpatient stay/not able to get stent Head atraumatic, normocephalic, mm slightly dry Resp: even/unlabored, no wheezing/rales, on room air CV: RRR, rates 90s, no significant m/r/g, ll edema 2nd to cellulitis/diabetic foot infection/PAD MSK/Neuro/Exr: R 5ht toe amputation site looks good, sutures intact without significant drainage, decreased erythema reported by patient but still with ongoing edema no significant tenderness, sensation to pressure intact but maybe slightly diminished to light touch toes mobile, fungal appearance to nails bilaterally Do note ulceration to lateral aspect of FOURTH toe, scab intact/no active drainage at this time (but instructed nurse to cover w/ aquacell Ag) Psych: awake/alert and oriented x3, cooperative with exam Results & Data Results & Data Vital Signs (Past 12 Hours) Vital Signs Temp Pulse Resp BP Pulse Ox O2 Del Method 10/10/24 20:04 37.1 C 95 H 18 139/81 91 Room Air Laboratory Results 10/11/24 10/11/24 10/11/24 Range/Units 11:40 08:22 07:24 WBC (4.8-10.8) K/ul RBC (4.20-5.40) M/uL Hgb (12.0-16.0) g/dl Hct (37.0-47.0) % MCV (80.0-100.0) fL MCH (25.0-34.0) pg MCHC (32.0-36.0) g/dL RDW Std Deviation (36.4-46.3) fL RDW Coeff of Wesly (11.5-14.5) % Plt Count (130-400) K/uL MPV (9.4-12.4) fL LA PTT Screen (<=40) sec Protein C Activity (70-180) % normal Protein S Activity (60-140) % normal Antithrombin III Activ (80-135) % normal Heparin Anti-Xa, Unfract (0.3-0.7) IU/ml Sodium (136-145) mmol/L Potassium (3.5-5.1) mmol/L Chloride (98-107) mmol/L Carbon Dioxide (21-32) mmol/L Anion Gap (3-11) BUN (6-23) mg/dl Creatinine (0.6-1.2) mg/dl Est Cr Clr Drug Dosing ml/min eGFR BUN/Creatinine Ratio (10-20) Glucose (70-99(Fasting)) mg/dl POC Glucose 174 H 155 H (70-99) mg/dl Calcium (8.6-10.3) mg/dl Magnesium 1.9 (1.7-2.4) mg/dl C-Reactive Protein (0-0.5) mg/dl Vitamin B12 (180-914) pg/ml Methylmalonic Acid Pending Folate (>5.38) ng/ml Beta-2-GPI IgG Ab (<20.0) U/mL Beta-2-GPI IgM Ab (<20.0) U/mL Anti-Cardiolipin IgG Ab GPL-U/mL Anti-Cardiolipin IgM Ab MPL-U/mL 10/11/24 10/11/24 10/10/24 Range/Units 06:11 05:25 22:53 WBC 6.27 (4.8-10.8) K/ul RBC 3.61 L (4.20-5.40) M/uL Hgb 10.5 L (12.0-16.0) g/dl Hct 32.2 L (37.0-47.0) % MCV 89.2 (80.0-100.0) fL MCH 29.1 (25.0-34.0) pg MCHC 32.6 (32.0-36.0) g/dL RDW Std Deviation 42.4 (36.4-46.3) fL RDW Coeff of Wesly 12.9 (11.5-14.5) % Plt Count 309 (130-400) K/uL MPV 9.8 (9.4-12.4) fL LA PTT Screen (<=40) sec Protein C Activity (70-180) % normal Protein S Activity (60-140) % normal Antithrombin III Activ (80-135) % normal Heparin Anti-Xa, Unfract 0.30 0.27 L (0.3-0.7) IU/ml Sodium 140 (136-145) mmol/L Potassium 3.3 L (3.5-5.1) mmol/L Chloride 105 (98-107) mmol/L Carbon Dioxide 30 (21-32) mmol/L Anion Gap 5 (3-11) BUN 12 (6-23) mg/dl Creatinine 0.82 (0.6-1.2) mg/dl Est Cr Clr Drug Dosing 69.3 ml/min eGFR 78.35 BUN/Creatinine Ratio 14.6 (10-20) Glucose 137 H (70-99(Fasting)) mg/dl POC Glucose (70-99) mg/dl Calcium 8.9 (8.6-10.3) mg/dl Magnesium (1.7-2.4) mg/dl C-Reactive Protein 8.87 H (0-0.5) mg/dl Vitamin B12 394 (180-914) pg/ml Methylmalonic Acid Folate 16.18 (>5.38) ng/ml Beta-2-GPI IgG Ab (<20.0) U/mL Beta-2-GPI IgM Ab (<20.0) U/mL Anti-Cardiolipin IgG Ab GPL-U/mL Anti-Cardiolipin IgM Ab MPL-U/mL 10/10/24 10/10/24 10/10/24 Range/Units 20:28 16:42 15:46 WBC (4.8-10.8) K/ul RBC (4.20-5.40) M/uL Hgb (12.0-16.0) g/dl Hct (37.0-47.0) % MCV (80.0-100.0) fL MCH (25.0-34.0) pg MCHC (32.0-36.0) g/dL RDW Std Deviation (36.4-46.3) fL RDW Coeff of Wesly (11.5-14.5) % Plt Count (130-400) K/uL MPV (9.4-12.4) fL LA PTT Screen (<=40) sec Protein C Activity (70-180) % normal Protein S Activity (60-140) % normal Antithrombin III Activ (80-135) % normal Heparin Anti-Xa, Unfract 0.18 L (0.3-0.7) IU/ml Sodium (136-145) mmol/L Potassium (3.5-5.1) mmol/L Chloride (98-107) mmol/L Carbon Dioxide (21-32) mmol/L Anion Gap (3-11) BUN (6-23) mg/dl Creatinine (0.6-1.2) mg/dl Est Cr Clr Drug Dosing ml/min eGFR BUN/Creatinine Ratio (10-20) Glucose (70-99(Fasting)) mg/dl POC Glucose 163 H 130 H (70-99) mg/dl Calcium (8.6-10.3) mg/dl Magnesium (1.7-2.4) mg/dl C-Reactive Protein (0-0.5) mg/dl Vitamin B12 (180-914) pg/ml Methylmalonic Acid Folate (>5.38) ng/ml Beta-2-GPI IgG Ab (<20.0) U/mL Beta-2-GPI IgM Ab (<20.0) U/mL Anti-Cardiolipin IgG Ab GPL-U/mL Anti-Cardiolipin IgM Ab MPL-U/mL 10/07/24 Range/Units 09:18 WBC (4.8-10.8) K/ul RBC (4.20-5.40) M/uL Hgb (12.0-16.0) g/dl Hct (37.0-47.0) % MCV (80.0-100.0) fL MCH (25.0-34.0) pg MCHC (32.0-36.0) g/dL RDW Std Deviation (36.4-46.3) fL RDW Coeff of Wesly (11.5-14.5) % Plt Count (130-400) K/uL MPV (9.4-12.4) fL LA PTT Screen 41 H (<=40) sec Protein C Activity 156 (70-180) % normal Protein S Activity 138 (60-140) % normal Antithrombin III Activ 137 H (80-135) % normal Heparin Anti-Xa, Unfract (0.3-0.7) IU/ml Sodium (136-145) mmol/L Potassium (3.5-5.1) mmol/L Chloride (98-107) mmol/L Carbon Dioxide (21-32) mmol/L Anion Gap (3-11) BUN (6-23) mg/dl Creatinine (0.6-1.2) mg/dl Est Cr Clr Drug Dosing ml/min eGFR BUN/Creatinine Ratio (10-20) Glucose (70-99(Fasting)) mg/dl POC Glucose (70-99) mg/dl Calcium (8.6-10.3) mg/dl Magnesium (1.7-2.4) mg/dl C-Reactive Protein (0-0.5) mg/dl Vitamin B12 (180-914) pg/ml Methylmalonic Acid Folate (>5.38) ng/ml Beta-2-GPI IgG Ab <2.0 (<20.0) U/mL Beta-2-GPI IgM Ab 9.2 (<20.0) U/mL Anti-Cardiolipin IgG Ab <2.0 GPL-U/mL Anti-Cardiolipin IgM Ab 9.7 MPL-U/mL PG Care Time/CCT Total # of Minutes Spent Total Time Spent with Patient: Total time spent is greater than 50% in coordination of care (as documented) at patient's floor/unit and/or counseling patient: Coding Level of Care Code 49883 SUB INP/OBS CARE 350MIN Diagnoses Gangrene of toe I96 Type 2 diabetes mellitus with hyperglycemia, without long-term current use of insulin E11.65 Diabetes mellitus complication status: with hyperglycemia Diabetes mellitus medical terminologist insulin use: without skilled nursing use Diabetes mellitus type: type 2 Gram-positive bacteremia R78.81 (2) Diabetes Diabetes mellitus complication status: with hyperglycemia Diabetes mellitus medical terminologist insulin use: without skilled nursing use Diabetes mellitus type: type 2 Qualified Code(s): E11.65 - Type 2 diabetes mellitus with hyperglycemia
[2024-10-11] MEDS: POTASSIUM CHLORIDE CRTAB 20 MEQ TABCR PO STA (08:21)
[2024-10-11] MEDS ORDERED: GABAPENTIN 100 MG CAP PO PRN (12:18)
--- NOTE | 2024-10-11 14:40 | Podiatry Progress Note ---
Date of Service October 11, 2024 Assessment & Plan (1) Streptococcal bacteremia: (2) Gangrene of toe of right foot: (3) Peripheral arterial disease: (4) Osteomyelitis of fifth toe of right foot: (5) Diabetes: Plan Postop day 4 status post right fifth toe amputation for management of gangrene and osteomyelitis. Wound edges remain well-approximated with all sutures intact. Erythema and edema continue to resolve to the periwound soft tissue. Starting to develop some nonblanchable soft tissue along the incision line which is concerning for possible early wound failure. Will continue to monitor closely. -Dressing changed without drainage to the dressing. Dressing order placed for once daily dressing change cleansing wound with normal sterile saline and applying a bordered foam dressing. -Okay to continue to weight-bear as tolerated to the right foot in postop shoe. -Proximal margin bone pathology from fifth toe 10/07/2024: Pending. -Bone culture intraoperative fifth toe 10/07/2024: Growing group B strep, Streptococcus anginosus, Finegoldia magna. Pansensitive group B strep on sensitivity. -Strep bacteremia: Patient evaluated by infectious disease. Luisn transition to CTX 2 g IV daily today. Patient will continue 2-week course of IV antibiotics for strep bacteremia. She is encouraged to continue postop shoe at all times while weightbearing until follow-up. Minimize weightbearing when possible. Dressing every other day with dry sterile dressing to the right foot amputation site. Follow-up in the podiatry clinic within 1 week of discharge. Admission and Anticipated Discharge Date Admission Date: October 06, 2024 Subjective Postop day #4 status post right fifth toe amputation for management of gangrene and osteomyelitis. Patient seen resting comfortably in hospital bed. Reports decreased pain in the right foot. Dressing is clean dry and intact. Denies nausea, vomiting, fever, chills. Review of Systems Review of Systems: Systems reviewed and negative unless detailed in HPI. Physical Exam Physical Exam: Const: Appears well developed and well nourished. No signs of acute distress present. Capillary refill time is less than 2 seconds all digits of the bilateral foot. Posterior tibial and dorsalis pedis pulses are lightly palpable left nonpalpable right possibly secondary to edema. Skin: Thinning atrophic skin to the bilateral lower extremity with loss of hair growth. Neuro: Decreased protective sensation in the bilateral toes. Psych: Mood/Affect: Mood is normal. Affect is normal. Cognition: Orientation is intact to person, place and time. Focused lower extremity musculoskeletal exam: Leg: No pain with compression of the calf muscle. Ankles: Normal to inspection and palpation. No signs of external injury. Edema right ankle. Right foot: Resolving erythema and edema to the right foot. No lymphangitis or streaking. Postop day 4 status post right fifth toe amputation. Wound edges remain well-approximated with all sutures intact. Difficult to say whether or not wound will go on to heal uneventfully based on today's exam. She is starting to develop some nonblanchable tissue along the plantar wound edge. There is no tension on the suture lines. Central suture is relieved in hopes to minimize stress on local soft tissue's. No active drainage or dehiscence at this time. Decreased erythema and edema to the foot with minimal periwound erythema and edema persistent. Results & Data Results & Data Vital Signs (Past 12 Hours) Vital Signs Temp Pulse Resp BP Pulse Ox O2 Del Method 10/11/24 08:41 36.3 C L 92 H 18 140/81 94 Room Air Coding Level of Care Code 44710 SUB INP/OBS CARE 08/15MIN Diagnoses Streptococcal bacteremia R78.81; B95.5 Gangrene of toe of right foot I96 Peripheral arterial disease I73.9 Osteomyelitis of fifth toe of right foot M86.9 Type 2 diabetes mellitus with hyperglycemia, without long-term current use of insulin E11.65 Diabetes mellitus complication status: with hyperglycemia Diabetes mellitus longterm insulin use: without terminologist use Diabetes mellitus type: type 2 (5) Diabetes Diabetes mellitus complication status: with hyperglycemia Diabetes mellitus longterm insulin use: without terminologist use Diabetes mellitus type: type 2 Qualified Code(s): E11.65 - Type 2 diabetes mellitus with hyperglycemia
[2024-10-12 06:13] LABS: Hematocrit (blood only) 32.4 % (37.0-47.0); Hemoglobin 10.5 g/dl (12.0-16.0); Mean Corpuscular Hemoglobin 28.5 pg (25.0-34.0); Mean Corpuscular Hgb Conc 32.4 g/dL (32.0-36.0); Mean Platelet Volume 9.7 fL (9.4-12.4); Platelet Count 363 K/uL (130-400); RDW Coefficient of Variation 12.8 % (11.5-14.5); RDW Standard Deviation 41.1 fL (36.4-46.3); Red Blood Count 3.68 M/uL (4.20-5.40); White Blood Count 6.57 K/ul (4.8-10.8)
[2024-10-12 06:39] LABS: BUN Creatinine Ratio 13.2 (10-20); C Reactive Protein 6.71 mg/dl (0-0.5); Calcium 9.1 mg/dl (8.6-10.3); Creatinine Clr Calc Pharmacy 74.7 ml/min; Potassium 3.3 mmol/L (3.5-5.1)
--- NOTE | 2024-10-12 07:37 | Hospitalist Progress Note ---
Date of Service October 12, 2024 Assessment & Plan (1) Gangrene of toe: (2) Diabetes: (3) Gram-positive bacteremia: Plan 69 F without known prior diagnosis of DM (A1c 13, family hx) presented with gangrene RIGHT 5th toe/diabetic foot infection (reported worsened over ~5 wk period of time) and also with streptococcal bacteremia. #PAD/Gangrenous 5th R toe/DM foot infection Partial arterial occlusion to lower extremities R>L, angiogram performed and Podiatry/vascular consulted s/p amputation 5th tight toe with primary closure by Dr Wild on 10/07, pathology pending Attempted angioplasty and stent on 10/[address] Lewis which was unsuccessful as unable to advance wire through SFA occlusion, decision to revascularize w/ fem pop bypass based on wound healing by Dr Lewis on repeat eval 10/12 Remains on heparin and will need to discuss w/ vascular about aspirin or other needed and feeling on statin therapy - to hold off for now ID rec continued Ceftriaxone Repeat blood cultures negative after initiation of antibiotics and per ID if pathology negative for OM can complete 2wk course abx for strep bacteremia from negative BCx 10/07 on Amoxicililn 1gm TID if sensitive. If pathology positive, then 6wks abx(PO if vascular supply adequate vs IV if still inadequate) CRP further elevated to 8 however and does have ulceration to lateral fourth toe on the right concerning for possible need for further intervention pending finalized pathology Monitor labs/exam in AM 10/12 - CRP trending down, podiatry saw last evening/believes healing nicely. Dr Lewis to see today/decide on bypass plans. Remains on ABX/WBC wnl. Repeat blood cx remain NGTD. Pathology PENDING #Bacteremia- as above, suspected 2nd to diabetic foot infection/gangrenous 5th R toe. ECHO negative for vegetation and ID consulted/de-escalated abx to CTX as above. Ongoing abx pending wound healing/possible further vascular intervention with bypass #DM II- NEW DIAGNOSIS A1c 13, basal bolus insulin, in service educator recommends daily lantus with metformin( start delayed due to angiogram dye) and eventual dexcom PRESCRIPTIONS NEEDED AT DISCHARGE: 1.) Lantus Solostar Pen. 2.) Pen Needle 32 gauge x 5/32"- to inject 1x/day. 3.) Metformin. 4.) OneTouch Verio Meter. 5.) OneTouch Verio Test Strips- to check 3x/day. 6.) OneTouch Delica Lancets- to check 3x/day. #Elevated homocysteine level Homocysteine level returned at 13, elevated in setting PAD Note does have hypercoag labs from admission for concerns thrombosis and does have slight elevation in antithrombin III activity. Homocysteine can inhibit antithrombin III's anticoagulation effects Checking B12/folate, consider empiric B6 Consider touching base w/ AC clinic provider in Saturday, will start B12/B6 in meantime. Hopefully would help w/ inflammatory component and does have elevated CRP above #SHEILA- mild SHEILA post-procedure, has resolved w/ NSS #HTN- noted but stable in hospital setting/pain from above. Monitor but consider MRAC/ARB for cardiorenal protection #HLD- lipid panel w/ TRG 221, Cholesterol 217 w/ LDL 136 and will plan for statin therapy at [place] but defer for now while inpatient #Hypokalemia- K 3.3 on AM labs, 20meq PO x 1 and check mag. BMP in AM. Encouraged adequate nutrition for wound healing, will add boost to meals for increased protein to promote healing Repeat K again 3.3 and 40meq x 1 will be ordered. ?if benefit from spironolactone for HTN/edema/diuretic effect? ?underlying metabolic syndrome w/ obesity/HTN/HLD/insulin resistance and now DM w/ elevated homocysteine level. reports normal periods/consideration for PCOS prior (mother hx uterine). Does report snoring, ?underlying JARRETT DVT proph: SCD, Heparin gtt continued PT consult placed Dispo: continued inpatient stay and repeat eval by podiatry/vascular in AM and will need f/u pathology from amputation. Admission and Anticipated Discharge Date Admission Date: October 06, 2024 PG Care Time/CCT Total # of Minutes Spent Total Time Spent with Patient: Total time spent is greater than 50% in coordination of care (as documented) at patient's floor/unit and/or counseling patient: Coding Diagnoses Gangrene of toe I96 Type 2 diabetes mellitus with hyperglycemia, without long-term current use of insulin E11.65 Diabetes mellitus complication status: with hyperglycemia Diabetes mellitus exterminator termite insulin use: without exterminator termite use Diabetes mellitus type: type 2 Gram-positive bacteremia R78.81 (2) Diabetes Diabetes mellitus complication status: with hyperglycemia Diabetes mellitus exterminator termite insulin use: without senior care use Diabetes mellitus type: type 2 Qualified Code(s): E11.65 - Type 2 diabetes mellitus with hyperglycemia
[2024-10-12 07:49] VITALS: BP 176/86; PULSE 76; RESP 18; TEMP 97.7; O2SAT 93
[2024-10-12 08:17] LABS: Lupus Hex Phase (Rflxdonotord) Negative (Negative)
[2024-10-12] MEDS: CYANOCOBALAMIN (B-12) 500 MCG TABLET PO SCH (08:26)
[2024-10-12] MEDS: POTASSIUM CHLORIDE CRTAB 20 MEQ TABCR PO STA ×2 (08:26→10:23)
--- NOTE | 2024-10-12 10:02 | Surgery Progress Note ---
Date of Service October 12, 2024 Assessment & Plan (1) Peripheral arterial disease: Plan: At this point there is a fairly good chance that this wound may heal without the patient undergoing a surgical bypass of the right lower extremity. I would continue her on oral antibiotics. I agree with starting her on a statin and antiplatelet therapy. She is to see her last marker later this week and we will see her next week. If her incision worsens between these visits she will call our office. If her wound does not improve by her visit next week then she will most likely will need a bypass to the right lower extremity. She can be discharged today as per the medical service. Admission and Anticipated Discharge Date Admission Date: October 06, 2024 Subjective Patient has no complaints. She denies any pain in the amputation site. Physical Exam Constitutional: WD/WN, vitals as above Cardiovascular: Extremities: normal capillary refill Skin: There is some darkening along a small portion of the incision site. The rest of the incision site looks good. There is no obvious dehiscence is noted. She does have some very mild erythema along the edges. Rest of the toes javier nicely with good capillary refill. Results & Data Vital Signs (Past 12 Hours) Vital Signs Temp Pulse Resp BP Pulse Ox O2 Del Method 10/12/24 07:47 36.5 C 76 18 176/86 H 93 Room Air
[2024-10-12] MEDS: PYRIDOXINE HCL 50 MG TAB PO SCH (10:30)
[2024-10-12] MEDS: ASPIRIN 81 MG ECTAB PO ONE (10:30)
[2024-10-12] MEDS: CLOPIDOGREL BISULFATE 75 MG TAB PO ONE (10:30)
--- NOTE | 2024-10-12 11:02 | Discharge Summary ---
Discharge Summary Date of Service October 12, 2024 Principal Dx & Hospital Course #1 = Principal Diagnosis (1) Gangrene of toe: (2) Diabetes: (3) Gram-positive bacteremia: Plan 69 F without known prior diagnosis of DM (A1c 13, family hx) presented with gangrene RIGHT 5th toe/diabetic foot infection (reported worsened over ~5 wk period of time) and also with streptococcal bacteremia. #PAD/Gangrenous 5th R toe/DM foot infection Partial arterial occlusion to lower extremities R>L, angiogram performed and Podiatry/vascular consulted s/p amputation 5th tight toe with primary closure by Dr Wild on 10/07, pathology pending Attempted angioplasty and stent on 10/[address] Lewis which was unsuccessful as was able cross with wire but unable to advance balloon thru SFA occlusion, decision to revascularize w/ fem pop bypass based on wound healing by Dr Lewis on repeat eval 10/12, decision to allow chance to heal. Dr Wild did remove one suture as center of suture line was looking blanched, this did not improve the blanching, the cap refill surrounding the wound is 3 s, small 3 mm ulcer at lateral base of 4th toe is dry After discussion w/ vascular surgery will be dc on dapt but eventually may change to plavix. Pt likely to need statin, however has been with untreated DM for unknown period of time and would be interested to see what risk factors are with treatment, did not check micro ablumin or start marc at this point ?underlying metabolic syndrome w/ obesity/HTN/HLD/insulin resistance and now DM w/ elevated homocysteine level. reports normal periods/consideration for PCOS prior (mother hx uterine). Does report snoring, ?underlying JARRETT ID rec Amoxil 1gm tid for 2 weeks, if pathology negative for OM can complete 2wk course abx for strep bacteremia from negative BCx 10/07 If pathology of margin positive, can consider 6wks abx #Bacteremia- as above, suspected 2nd to diabetic foot infection/gangrenous 5th R toe. ECHO negative for vegetation and ID consulted/de-escalated abx as above. Repeat blood cultures negative after initiation of antibiotics #DM II- NEW DIAGNOSIS A1c 13, environmental educator recommends daily lantus with metformin( start delayed due to angiogram dye) and dexcom applied at dc PRESCRIPTIONS AT DISCHARGE: 1.) Lantus Solostar Pen. 2.) Pen Needle 32 gauge x 5/32"- to inject 1x/day. 3.) Metformin. 4.) OneTouch Verio Meter. 5.) OneTouch Verio Test Strips- to check 3x/day. 6.) OneTouch Delica Lancets- to check 3x/day. #Elevated homocysteine level Homocysteine level returned at 13, elevated in setting PAD, this could be from uncontrolled diabetes Note does have hypercoag labs from admission for concerns thrombosis and does have slight elevation in antithrombin III activity recommend mvi with B12,B6 and folate #SHEILA- mild SHEILA post-procedure, has resolved tpo CKD2 Notes For Next Care Provider Certainly risk factor modification. Focusing first on diabetic control and blood supply with treating wound and with good wound care. Outstanding issues are understanding diabetes effect on her renal system as she is not on an MARC or an ARB Considering carotid artery ultrasound although no symptoms but with her significant PAD Considering metabolic syndrome focusing on hypertension and lipid panel once diabetes is controlled Understanding whether any continue with dual antiplatelets or just streamlined to 1 antiplatelet agent once her wound is healed Continue discussion of revascularization Admission HPI Per Admitting Provider 69 F with relatively good health when approximately 6 weeks ago she did have blister on her right 5th toe she felt was secondary to abrasion, she did complete 10 days of Doxycycline starting 09/04/24, however after some minimal initial improvement her toe became worsened, eventually with what sounds like degloving of the toe, she then noticed that her toe was black and upon revealing this today, 10/06/24, she has a gangrenous toe and was refereed from podiatric clinic with wet gangrene and will ketanley need amputation, labs on admission show blood glucose of 345. will eval arterial supply, MRI to eval for osteomyelitis and npo for surgical correction Discharge Exam Evaluation of her foot shows the wound margin to be intact there is a area of blanching approximately 1 cm center of the wound on both sides of the wound edge. The wound is not open at this time. There is a small 3 mm dry ulcer at the base of the lateral side of her fourth toe Capillary fill is 3 seconds but pulses are still difficult to palpate Discharge Plan Discharge Items Patient Disposition: Home - Self-Care Reason For Visit: FIFTH RIGHT TOE GANGRENE Discharge Diagnosis: gangrene right 5th toe s/p amputation diabetes, uncontrolled with high levels, new diagnosis peripheral vascular disease Activity: Per Instructions section Activity Comment: minimize weight bearing right foot and elevate as much as able Non-emergency contact: Primary Care Provider and Specialist Call non-emergency contact if: your symptoms worsen Follow-up/Referrals: Jordi Plummer MD [Physician] - PCP,NO [Primary Care Provider] - Diet: Carb Consistent or DM2 Addtl Attending Provider Instructions: Hospitalized for gangrenous fifth right toe. Podiatry/vascular consulted and amputation of the 5th toe was undertaken and suspect related to underlying diabetes. Infectious disease has recommended Amoxicillin, high dose 1 gm Three times a day for at least 2 weeks Diabetes, --> Dexcom meter, metformin ER and daily Lantus and the Dexcom should provide you with continuous blood glucose levels, should this not work correctly you can use the verio one touch meter. If using the meter you should be checking blood sugars at least twice a day, once in the morning and then rotate lunch dinner and bedtime. record these to take to your follow up and always check your blood sugar if you do not feel well Please keep an eye on your wound, even taking pictures daily to remind of progress, if the wound becomes more white or black or has increasing drainage contact Dr Wild or Kavitha, or me. possible future medication High Blood pressure /kidney protection and also cholesterol treatment can be made once you have your blood sugar under control for a few weeks and we can recheck some of your blood work To keep your blood supply flowing, Dr Lewis feels we should be on dual medications, Aspirin and plavix,for the short term future with joint terminal attack controller medication decision based on your clinical course You did have a Elevated homocysteine level, this could be from your uncontrolled diabetes, however homocysteine can have a play at causing blood clots, good news is that elevated levels can be made to come down with a daily multivitamin that contains B12, B6 and Folic acid ( folate) Addtl Industrial Service Technician Provider Instructions: you did have your antibiotics, aspirin, plavix and insulin for today 10/12/24, you do not need to start any new medicines until 10/13/24 Pending Studies at Discharge: Yes Studies:: Methylmalonic acid level, prothrombin gene mutation, prothrombin gene, pathology Stand-Alone Forms: My [facility] 55social, Smoking Cessation Medications and DC Order Prescriptions: New insulin glargine [Lantus Solostar U-100 Insulin] 100 unit/mL (3 mL) insulin pen 30 unit subcut QAM Qty: 15 5RF metformin 500 mg tablet extended release 24 hr 500 mg PO DAILY Qty: 30 4RF (DME) pen needle, diabetic [Comfort EZ Pen [place]] 32 gauge x 5/32" needle See Rx Instructions .Route Qty: 50 4RF Rx Instructions: use for one injection daily (DME) OneTouch Verio test strips Strip See Rx Instructions .Route Qty: 100 4RF Rx Instructions: tid testing (DME) lancets [OneTouch Delica Plus Lancet] 33 gauge misc See Rx Instructions .Route Qty: 100 4RF Rx Instructions: tid testing amoxicillin 500 mg tablet 1,000 mg PO TID 14 Days Qty: 84 0RF (DME) blood-glucose meter Misc See Rx Instructions .Route Qty: 1 0RF Rx Instructions: tid testing aspirin 81 mg capsule 81 mg PO DAILY Qty: 30 4RF Discharge Orders: Discharge Order (Routine); Ordered 10/12/24 Ordered By: Dmitriy Lucero/Other Patient Handouts: Injection Pens Dc, Diabetes Inspect Feet Admission Data Admit Date/Time: 10/06/24 16:57 Attending Provider: Dmitriy Stewart Admit Provider: Dmitriy Stewart Primary Care Provider: PCP,NO Other Providers: Bebeto Wild; Frank Lewis Other Interventions: Discharge Summary Assessment (RN) Last Done: 10/12/24 12:55 Hospital Stay Data Consultations 10/06/24 17:02 Consult Podiatry Routine 10/07/24 07:54 Consult Vascular Surgery Routine 10/08/24 11:23 Consult Infectious Diseases Routine 10/12/24 09:57 Burn CD for patient Routine Procedures Performed Operation Date: 10/09/24 08:00 Actual Procedures p Right Leg Angiogram,Percutaneous Transluminal Angioplasty of Right Superficial Femoral Artery,Ultrasound Localization of Left Femoral Artery,Moderate Sedation [id number](Left) - Frank Lewis MD Diagnostic Imagining Performed 10/06/24 17:02 MRI Foot [MR foot RT w/o con] Routine US arterial duplex LE BI Routine 10/07/24 07:31 CTA abd aorta runof w con [CT ang AA runof w inc wo ifdon] Routine 10/09/24 07:15 EV angio LE RT Routine US EV guide vascular access Routine Pending Results Patient Have Any Pending Studies at Discharge: Yes Discharge Instructions Given to Patient (Per Discharging Provider) Hospitalized for gangrenous fifth right toe. Podiatry/vascular consulted and amputation of the 5th toe was undertaken and suspect related to underlying diabetes. Infectious disease has recommended Amoxicillin, high dose 1 gm Three times a day for at least 2 weeks Diabetes, --> Dexcom meter, metformin ER and daily Lantus and the Dexcom should provide you with continuous blood glucose levels, should this not work correctly you can use the verio one touch meter. If using the meter you should be checking blood sugars at least twice a day, once in the morning and then rotate lunch dinner and bedtime. record these to take to your follow up and always check your blood sugar if you do not feel well Please keep an eye on your wound, even taking pictures daily to remind of progress, if the wound becomes more white or black or has increasing drainage contact Dr Wild or Kavitha, or me. possible future medication High Blood pressure /kidney protection and also cholesterol treatment can be made once you have your blood sugar under control for a few weeks and we can recheck some of your blood work To keep your blood supply flowing, Dr Lewis feels we should be on dual medications, Aspirin and plavix,for the short term future with [facility] medication decision based on your clinical course You did have a Elevated homocysteine level, this could be from your uncontrolled diabetes, however homocysteine can have a play at causing blood clots, good news is that elevated levels can be made to come down with a daily multivitamin that contains B12, B6 and Folic acid ( folate) Total Time Total Time Spent Total Time Spent (In Minutes): It required greater than 30 minutes to prepare this patient for discharge. Coding Level of Care Code 34032 INP/OBS DISCH >30 MIN Diagnoses Gangrene of toe I96 Type 2 diabetes mellitus with hyperglycemia, without long-term current use of insulin E11.65 Diabetes mellitus complication status: with hyperglycemia Diabetes mellitus joint terminal attack controller insulin use: without [facility] use Diabetes mellitus type: type 2 Gram-positive bacteremia R78.81
[2024-10-12] MEDS: cefTRIAXone SODIUM 2,000 MG/50 ML BAG IV SCH (11:52)
--- NOTE | 2024-10-12 12:27 | Infectious Disease Progress Nt ---
Date of Service October 12, 2024 Assessment & Plan (1) Streptococcal bacteremia: (2) Osteomyelitis of fifth toe of right foot: (3) Gangrene of toe of right foot: (4) Peripheral arterial disease: (5) Diabetes: Plan 69yo F with no PMH who presented on 10/06 from podiatry office with wet gangrene of right fifth toe. Recently had doxycycline x 10d starting 09/04. On admission, she was afebrile, tachycardic, 1 BP 89/44 with improvement. Initial labs with WBC 8.84, Cr 0.96. CRP 2.81. CXR negative. LE arterial duplex with PAD. CTA runoff with extensive vascular disease, R>L. MRI right foot with OM of fifth toe. She is diagnosed with new onset diabetes and started on zosyn. BCx with Strep anginosus. S/p OR 10/07 and underwent amputation of right fifth toe at [facility] (per op note, fifth metatarsal head is pristine appearing white cartilage with no signs of necrosis discoloration or damage). OR cx with S agalactiae and S anginosus. ID consulted 10/08. TTE negative for vegetations. No hardware/devices. Vascular surgery feels there is a fairly good chance the wound may heal without surgical bypass of RLE. Based on op note, it seems that the cultures were of the proximal phalanx, which was amputated. She has path pending of the proximal margin. # OM of right 5th toe and wet gangrene s/p 5th toe amputation 10/07 cx with Strep # Bacteremia 2/2 Strep anginosus # New diagnosis of diabetes # Peripheral arterial disease vascular intervention 10/09 - Pt wants to discharge prior to return of path. Surgeon feels low likelihood of residual osteomyelitis. Ok to discharge on amoxicillin 1 g PO TID through 10/21 (2 weeks from negative blood culture) and follow-up path as outpatient Discussed with Dr. Stewart. Will sign off. Admission and Anticipated Discharge Date Admission Date: October 06, 2024 Subjective This patient recommendation is based on a telemedicine consult request which was completed asynchronously through chart review and information provided by the primary physician. The patient was not seen or examined today. The evaluation is consultative in nature and all patient care and treatment decisions can either be accepted or rejected by the patient's primary hospital-based treating physician using their own independent medical judgment for their patient. Time Spent Reviewing Chart: 21 - 30 minutes Pt not seen Results & Data Vital Signs (Past 12 Hours) Vital Signs Temp Pulse Resp BP Pulse Ox O2 Del Method 10/12/24 07:47 36.5 C 76 18 176/86 H 93 Room Air Laboratory Results Short CBC 10/12/24 Range/Units 05:19 WBC 6.57 (4.8-10.8) K/ul Hgb 10.5 L (12.0-16.0) g/dl Hct 32.4 L (37.0-47.0) % Plt Count 363 (130-400) K/uL BMP 10/12/24 05:19 Sodium 139 Potassium 3.3 L Chloride 104 Carbon Dioxide 29 BUN 10 Creatinine 0.76 Glucose 131 H Calcium 9.1 Medications Administered Current Inpatient Medications Acetaminophen (Acetaminophen 325 Mg Tab) 650 mg PO Q4H PRN PRN Reason: pain/fever Stop: 11/05/24 17:07 Last Admin: 10/10/24 20:45 Dose: 650 mg Al Hydrox/Mg Hydrox/Simethicone (Aluminum/Magnesium Susp 30 Ml Udc) 30 ml PO Q6H PRN PRN Reason: Dyspepsia Stop: 11/05/24 17:07 Cyanocobalamin (Cyanocobalamin (B-12) 500 Mcg Tablet) 1,000 mcg PO QAM JOSIE Stop: 11/11/24 08:59 Last Admin: 10/12/24 08:26 Dose: 1,000 mcg Dextrose (Dextrose 50% 50 Ml Syringe) 25 - 50 ml IV UD PRN; Protocol PRN Reason: Hypoglycemia Protocol Stop: 11/05/24 18:35 Gabapentin (Gabapentin 100 Mg Cap) 100 mg PO HS PRN PRN Reason: NERVE PAIN Stop: 11/10/24 20:59 Glucagon (Glucagon For Inj 1 Mg Vial) 1 mg SQ UD PRN; Protocol PRN Reason: Hypoglycemia Protocol Stop: 11/05/24 18:35 Glucose (Glucose 40% Gel 15 Gm Tube) 15 - 30 gm PO UD PRN; Protocol PRN Reason: Hypoglycemia Protocol Stop: 11/05/24 18:35 Glucose (Glucose 10 Tab/Tube) 4 - 8 tab PO UD PRN; Protocol PRN Reason: Hypoglycemia Protocol Stop: 11/05/24 18:35 Ceftriaxone Sodium (Rocephin) 2,000 mg in 50 mls @ 100 mls/hr IV Q24H JOSIE Stop: 10/26/24 11:54 Last Infusion: 10/12/24 12:24 Dose: Infused Insulin Aspart (Insulin Aspart Per Unit Charge) 0 units SC ACHS [facility] Stop: 11/08/24 11:29 Last Admin: 10/12/24 11:54 Dose: 2 units Insulin Glargine (Lantus Per Unit Charge) 30 units SQ DAILY JOSIE Stop: 11/08/24 08:59 Last Admin: 10/12/24 08:26 Dose: 30 units Iodixanol (Visipaque) 70 ml IV UD PRN PRN Reason: Interaction Checking Stop: 10/13/24 09:44 Last Admin: 10/09/24 09:45 Dose: 70 ml Miscellaneous (Carbohydrates For Hypoglycemia ) 15 - 30 gm PO UD PRN PRN Reason: Hypoglycemia Protocol Stop: 11/05/24 18:35 Ondansetron HCl (Ondansetron Inj 2 Mg/Ml 2 Ml Vial) 4 mg IV Q6H PRN PRN Reason: Nausea Stop: 11/05/24 17:07 Polyethylene Glycol (Polyethylene (Miralax) 17 Gm Pack) 17 gm PO DAILY PRN PRN Reason: Constipation Stop: 11/05/24 17:07 Pyridoxine HCl (Pyridoxine Hcl 50 Mg Tab) 50 mg PO QAM [facility] Stop: 11/11/24 08:59 Last Admin: 10/12/24 10:30 Dose: 50 mg (5) Diabetes Diabetes mellitus complication status: with hyperglycemia Diabetes mellitus intermediate insulin use: without intermediate use Diabetes mellitus type: type 2 Qualified Code(s): E11.65 - Type 2 diabetes mellitus with hyperglycemia
[2024-10-14 04:17] LABS: Factor 5 Mutation NEGATIVE
== END 2024-10-12 14:19 | disposition home or self-care (01) | DRG 253 ==
LOC: SUATTDRO 16:57 → 3E 16:57
DX: E11.69 Type 2 diabetes mellitus with other specified complication; Z68.36 Body mass index [BMI] 36.0-36.9, adult; E66.9 Obesity, unspecified; E11.621 Type 2 diabetes mellitus with foot ulcer; E11.52 Type 2 diabetes mellitus with diabetic peripheral angiopathy with gangrene; I70.261 Atherosclerosis of native arteries of extremities with gangrene, right leg; B95.4 Other streptococcus as the cause of diseases classified elsewhere; I10 Essential (primary) hypertension; R78.81 Bacteremia; E11.65 Type 2 diabetes mellitus with hyperglycemia; M86.9 Osteomyelitis, unspecified; E87.6 Hypokalemia; L97.919 Non-pressure chronic ulcer of unspecified part of right lower leg with unspecified severity; N17.9 Acute kidney failure, unspecified; E78.5 Hyperlipidemia, unspecified